=== PATIENT | male | born 1945 | race African-American/Black ===

== ENCOUNTER → 2017-01-18 | Outpatient (CLI) | payer MEDICARE, BC ==
--- NOTE | 2017-01-19 09:18 | XCELERA REPORT ---
[address] [address] Lower Extremity Arterial Evaluation Name: ROSALIA NIX Age: 71 yrs Gender: Male : 1945 Patient Status: Outpatient Patient Location: Study Date: 01/18/2017 10:30 AM Procedure: A color flow and duplex scan of the lower extremity arteries was performed bilaterally with velocity and waveform anaylsis. Reason For Study: CLAUDICATION Ordering Physician: ELOY GEE Performed By: Camilo Cueva Measurements and Calculations Right Left PAPER STRIPPER PSV 103.0 87.4 cm/sec Prox PFA PSV -77.3 -103.1 cm/sec Dist SFA PSV -86.1 -70.4 cm/sec Prox Pop A PSV 85.5 98.1 cm/sec Mid TREV PSV 38.5 cm/sec Dist TREV PSV 52.4 101.2 cm/sec Dist SINGLE RESOURCE BOSS PSV 80.5 64.3 cm/sec Cezar Pedis PSV 27.5 65.9 cm/sec Right Side Arterial Evaluation Normal velocity and triphasic waveforms noted from the Common Femoral artery to the infrageniculate vessels. 0 % stenosis noted. Ankle Brachial index is 1.25. Left Side Arterial Evaluation Normal velocity and triphasic waveforms noted from the Common Femoral artery to the Anterior Tibial artery. Occlusion with triphasic reconstitution in the Posterior Tibial artery. Occlusion noted. With excellent collateral reconstitution. Ankle Brachial index is 1.17. Interpretation Summary No hemodynamically significant lesions in the right lower extremity only, on duplex imaging, at rest. Mild hemodynamically significant lesions in the left lower extremity only, on duplex imaging, at rest. : ELOY GEE > Lauri Fagan
--- NOTE | 2017-01-19 10:44 | XCELERA REPORT ---
[address] [address] Lower Extremity Venous Evaluation Name: ROSALIA NIX Age: 71 yrs Gender: Male : 1945 Patient Status: Outpatient Patient Location: Study Date: 01/18/2017 10:53 AM Procedure: A bilateral duplex scan of the lower extremity veins was performed. The evaluation included responses to compression and other maneuvers with patient in the supine and standing positions to assess venous insufficiency. Reason For Study: EDEMA Ordering Physician: ELOY GEE Performed By: Camilo Cueva Right Sided Venous Evaluation Deep venous system evaluation shows patent veins with significant reflux identified. 3.5 second reflux in the Popliteal vein, 2.4 seconds reflux in the Femoral vein. Sapheno Femoral junction: no reflux. Greater Saphenous vein, Proximal thigh: reflux: no reflux.. Greater Saphenous vein, mid thigh: reflux: no reflux. Greater Saphenous vein, Distal thigh: reflux:no reflux. Greater Saphenous vein, Proximal below knee: reflux: none Greater Saphenous vein, Mid below knee: reflux: 3.7 sconds, 3 mm diameter.. Greater Saphenous vein, Distal below knee: reflux: 3.2 seconds, 3 mm diameter. No significant Perforators identified. Left Sided Venous Evaluation Deep venous system evaluation shows patent veins with significant reflux identified. no reflux in the Popliteal vein, 2.2 seconds reflux in the Femoral vein. Sapheno Femoral junction: no reflux. Greater Saphenous vein, Proximal thigh: reflux: no reflux.. Greater Saphenous vein, mid thigh: reflux: no reflux. Greater Saphenous vein, Distal thigh: reflux:no reflux. Greater Saphenous vein, Proximal below knee: reflux: none Greater Saphenous vein, Mid below knee: reflux: no reflux. Greater Saphenous vein, Distal below knee: reflux: no reflux. No significant Perforators identified. Interpretation Summary No duplex evidence of DVT or obstruction in the bilateral lower extremities. Deep and superficial reflux, as noted. : ELOY GEE > Lauri Fagan
== END ==
LOC: SP 10:03
PROVIDERS: ATTEND Student in an Organized Health Care Education/Training Program
DX: I73.9 Peripheral vascular disease, unspecified (principal); R60.0 Localized edema
CPT/HCPCS: 93925; 93970

== ENCOUNTER 2017-07-22 14:06 | Emergency (ER) | payer MEDICARE, BC ==
--- NOTE | 2017-07-22 14:35 | ER Document Report ---
ED Medical Screen (RME) - General Chief Complaint: Dizziness Stated Complaint: DIZZY Time Seen by Provider: 07/22/17 14:33 Notes: Patient presents with increasing dizziness right occipital pain and some confusion. Patient was recently diagnosed with sinusitis and pneumonia and has been on antibiotics for 5 days however the symptoms persist and have not gotten any better per and patient. TRAVEL OUTSIDE OF THE [place] IN LAST 30 DAYS: No - Related Data Allergies/Adverse Reactions: lisinopril Adverse Reaction (Verified 07/22/17 14:08) Unknown reaction Past Medical History - Social History Chew tobacco use (# tins/day): No Frequency of alcohol use: Rare Drug Abuse: None - Past Medical History Cardiac Medical History: Reports: Hx Hypercholesterolemia - meds x 4 years, Hx Hypertension - meds x 4 years Denies: Hx Atrial Fibrillation, Hx Congestive Heart Failure, Hx Coronary Artery Disease, Hx Heart Attack, Hx Peripheral Vascular Disease, Hx Heart Murmur Pulmonary Medical History: Neurological Medical History: Renal/ Medical History: Denies: Hx Peritoneal Dialysis GI Medical History: Denies: Hx Crohn's Disease, Hx Gastroesophageal Reflux Disease, Hx Hiatal Hernia, Hx Irritable Bowel, Hx Liver Failure, Hx Pancreatitis , Hx Ulcer Musculoskeltal Medical History: Reports Hx Arthritis, Denies Hx Fibromyalgia, Denies Hx Muscular Dystrophy Psychiatric Medical History: Denies: Hx Bipolar Disorder, Hx Depression, Hx Post Traumatic Stress Disorder , Hx Schizophrenia Traumatic Medical History: Denies: Hx Fractures Infectious Medical History: Past Surgical History: Reports: Hx Abdominal Surgery - hernia; colectomy, Hx Bowel Surgery - 07/04/13, 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 Denies: Hx Appendectomy, Hx Cholecystectomy, Hx Colostomy, Hx Coronary Artery Bypass Graft, Hx Gastric Bypass Surgery, Hx Pacemaker, Hx Tonsillectomy - Immunizations Hx Diphtheria, Pertussis, Tetanus Vaccination: Yes Physical Exam - Vital signs Vitals: Temp Pulse Resp BP Pulse Ox 97.6 F 77 20 149/78 H 96 07/22/17 14:14 07/22/17 14:14 07/22/17 14:14 07/22/17 14:14 07/22/17 14:14 Course - Vital Signs Vital signs: Temp Pulse Resp BP Pulse Ox 97.6 F 77 20 149/78 H 96 07/22/17 14:14 07/22/17 14:14 07/22/17 14:14 07/22/17 14:14 07/22/17 14:14
[2017-07-22 14:57] LABS: HEMATOCRIT 43.1 % (37.9-51.0); HEMOGLOBIN 14.2 g/dL (13.5-17.0); HGB HCT DIFFERENCE -0.5; MEAN CORPUSCULAR HEMOGLOBIN 31.7 pg (27.0-33.4); MEAN CORPUSCULAR HGB CONC 32.9 g/dL (32.0-36.0); MEAN CORPUSCULAR VOLUME 96 fl (80-97); RED BLOOD COUNT 4.48 10^6/uL (4.35-5.55); RED CELL DISTRIBUTION WIDTH 13.5 % (11.5-14.0); WHITE BLOOD COUNT 16.2 10^3/uL (4.0-10.5)
--- NOTE | 2017-07-22 15:03 | RADIOLOGY REPORT (SQ) ---
EXAM DESCRIPTION: CT HEAD WITHOUT COMPLETED DATE/TIME: 07/22/2017 2:52 pm REASON FOR STUDY: velez/dizzy COMPARISON: CT brain 01/07/2014 TECHNIQUE: Axial images acquired through the brain without intravenous contrast. Images reviewed wi th bone, brain and subdural windows. Images stored on PACS. All CT scanners at this facility use dose modulation, iterative reconstruction, and/or weight based d osing when appropriate to reduce radiation dose to as low as reasonably achievable (ALARA). [facility]: Dose Right [facility]: CareDose [facility]: Dose Right [facility]: Teradose 4D [facility]: Dial2Do RADIATION DOSE: CT Rad equipment meets quality standard of care and radiation dose reduction techniq ues were employed. CTDIvol: 64.6 mGy. DLP: 1163 mGy-cm. mGy. LIMITATIONS: None. FINDINGS: VENTRICLES: Normal size and contour. CEREBRUM: No masses. No hemorrhage. No midline shift. No evidence for acute infarction. Small advertising sales assistant amy appearing lacunar infarcts in the bilateral basal ganglia. CEREBELLUM: No masses. No hemorrhage. No alteration of density. No evidence for acute infarction. EXTRAAXIAL SPACES: No fluid collections. No masses. ORBITS AND GLOBE: No intra- or extraconal masses. Normal contour of globe without masses. CALVARIUM: No fracture. PARANASAL SINUSES: No fluid or mucosal thickening. SOFT TISSUES: No mass or hematoma. OTHER: No other significant finding. IMPRESSION: No acute findings. Punctate lacunar infarcts in the right and left caudate. EVIDENCE OF ACUTE STROKE: NO. COMMENT: Quality ID # [id number]: Final reports with documentation of one or more dose reduction techniques (e.g., Automated exposure control, adjustment of the mA and/or kV according to patient size, use of iterative reconstruction technique) TECHNICAL DOCUMENTATION: JOB ID: [id number] [employer]- All Rights Reserved
[2017-07-22 15:04] LABS: APPEARANCE,URINE CLEAR; BILIRUBIN,URINE NEGATIVE (NEGATIVE); GLUCOSE, URINE NEGATIVE (NEGATIVE); KETONES,URINE NEGATIVE (NEGATIVE); LEUKOCYTE ESTERASE,URINE NEGATIVE (NEGATIVE); NITRITE,URINE NEGATIVE (NEGATIVE); PROTEIN,URINE NEGATIVE (NEGATIVE); URINE SPECIFIC GRAVITY 1.021; UROBILINOGEN,URINE NEGATIVE mg/dL (<2.0)
--- NOTE | 2017-07-22 15:16 | ER Document Report ---
ED Dizziness/Weakness - General Chief Complaint: Dizziness Stated Complaint: DIZZY Time Seen by Provider: 07/22/17 14:33 Notes: 71 years old pleasant male who presents today with 2 weeks history of runny nose postnasal drip cough, week ago diagnosed by urgent care as having right- sided pneumonia., He has been continuously coughing and developed right-sided upper neck pain yesterday which caused him to feel dizzy and lightheaded. With some ringing sensation in the ear. Therefore presented to the ED. denies any current fever chills, denies any headache, denies any chest pain or shortness of breath. Denies any wheezing. Denies any nausea vomiting. Denies any other constitutional symptoms. TRAVEL OUTSIDE OF THE [place] IN LAST 30 DAYS: No - Related Data Allergies/Adverse Reactions: lisinopril Adverse Reaction (Verified 07/22/17 14:08) Unknown reaction Past Medical History - Social History Smoking Status: Former Smoker Chew tobacco use (# tins/day): No Frequency of alcohol use: Rare Drug Abuse: None Family History: None Patient has suicidal ideation: No Patient has homicidal ideation: No - Past Medical History Cardiac Medical History: Reports: Hx Hypercholesterolemia - meds x 4 years, Hx Hypertension - meds x 4 years Denies: Hx Atrial Fibrillation, Hx Congestive Heart Failure, Hx Coronary Artery Disease, Hx Heart Attack, Hx Peripheral Vascular Disease, Hx Heart Murmur Pulmonary Medical History: Neurological Medical History: Renal/ Medical History: Denies: Hx Peritoneal Dialysis GI Medical History: Denies: Hx Crohn's Disease, Hx Gastroesophageal Reflux Disease, Hx Hiatal Hernia, Hx Irritable Bowel, Hx Liver Failure, Hx Pancreatitis , Hx Ulcer Musculoskeltal Medical History: Reports Hx Arthritis, Denies Hx Fibromyalgia, Denies Hx Muscular Dystrophy Psychiatric Medical History: Denies: Hx Bipolar Disorder, Hx Depression, Hx Post Traumatic Stress Disorder , Hx Schizophrenia Traumatic Medical History: Denies: Hx Fractures Infectious Medical History: Past Surgical History: Reports: Hx Abdominal Surgery - hernia; colectomy, Hx Bowel Surgery - 07/04/13, 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 Denies: Hx Appendectomy, Hx Cholecystectomy, Hx Colostomy, Hx Coronary Artery Bypass Graft, Hx Gastric Bypass Surgery, Hx Pacemaker, Hx Tonsillectomy - Immunizations Hx Diphtheria, Pertussis, Tetanus Vaccination: Yes Hx Pneumococcal Vaccination: 07/07/13 Review of Systems - Review of Systems Notes: REVIEW OF SYSTEMS: CONSTITUTIONAL : Denies fever, chills, or sweats. Denies recent illness. EENT: Denies eye, ear, throat, or mouth pain or symptoms. Denies nasal or sinus congestion or discharge. Denies throat, tongue, or mouth swelling or difficulty swallowing. CARDIOVASCULAR: Denies chest pain. Denies palpitations or racing or irregular heart beat. Denies ankle edema. RESPIRATORY: As per history of complaint. Denies shortness of breath, difficulty breathing, or wheezing. GASTROINTESTINAL: Denies abdominal pain or distention. Denies nausea, vomiting , or diarrhea. Denies blood in vomitus, stools, or per rectum. Denies black, tarry stools. Denies constipation. GENITOURINARY: Denies difficulty urinating, painful urination, burning, frequency, blood in urine, or discharge. MUSCULOSKELETAL: Denies back or neck pain or stiffness. Denies joint pain or swelling. SKIN: Denies rash, lesions or sores. HEMATOLOGIC : Denies easy bruising or bleeding. LYMPHATIC: Denies swollen, enlarged glands. NEUROLOGICAL: Denies confusion or altered mental status. Denies passing out or loss of consciousness. Denies dizziness or lightheadedness. Denies headache. Denies weakness or paralysis or loss of use of either side. Denies problems with gait or speech. Denies sensory loss, numbness, or tingling. Denies seizures. PSYCHIATRIC: Denies anxiety or stress. Denies depression, suicidal ideation, or homicidal ideation. ALL OTHER SYSTEMS REVIEWED AND NEGATIVE. Dictation was performed using [employer] recognition software PHYSICAL EXAMINATION: GENERAL: Well-appearing, well-nourished and in no acute distress. HEAD: Atraumatic, normocephalic. EYES: Pupils equal round and reactive to light, extraocular movements intact, sclera anicteric, conjunctiva are normal. ENT: Nares patent, oropharynx clear without exudates. Moist mucous membranes. NECK: Normal range of motion, supple without lymphadenopathy LUNGS: Good breath sounds on the left side, right lower lung field have rhonchi HEART: Regular rate and rhythm without murmurs ABDOMEN: Soft, nontender, nondistended abdomen. No guarding, no rebound. No masses appreciated. Musculoskeletal: Normal range of motion, no pitting or edema. No cyanosis. NEUROLOGICAL: Cranial nerves grossly intact. Normal speech, normal gait. Normal sensory, motor exams PSYCH: Normal mood, normal affect. SKIN: Warm, Dry, normal turgor, no rashes or lesions noted. Physical Exam - Vital signs Vitals: Temp Pulse Resp BP Pulse Ox 97.6 F 77 20 149/78 H 96 07/22/17 14:14 07/22/17 14:14 07/22/17 14:14 07/22/17 14:14 07/22/17 14:14 Course - Re-evaluation Re-evalutation: 07/22/17 16:23 CT and chest x-ray finding was explained to the patient. He was told he must have had a stroke remotely sometimes in the past. Given prescription for his bronchitis. - Vital Signs Vital signs: Temp Pulse Resp BP Pulse Ox 97.6 F 77 20 149/78 H 96 07/22/17 14:14 07/22/17 14:14 07/22/17 14:14 07/22/17 14:14 07/22/17 14:14 - Laboratory Result Diagrams: 07/22/17 14:45 07/22/17 14:45 Laboratory results interpreted by me: 07/22/17 07/22/17 07/22/17 14:45 14:45 14:45 WBC 16.2 H Sodium 146.0 H Carbon Dioxide 31 H Urine Ascorbic Acid 40 H Discharge - Discharge Clinical Impression: Lacunar infarction, Wheezy bronchitis Benign paroxysmal positional vertigo Qualifiers: Laterality: bilateral Qualified Code(s): H81.13 - Benign paroxysmal vertigo, bilateral Headache Qualifiers: Headache type: unspecified Headache chronicity pattern: chronic headache Intractability: not intractable Qualified Code(s): R51 - Headache Condition: Fair Disposition: HOME, SELF-CARE Instructions: Dizziness ([facility]), Meclizine ([facility]), Vertigo ([facility]) Additional Instructions: bronchitis Prescriptions: Albuterol Sulfate [Proair Hfa Inhalation Aerosol 8.5 gm Mdi] 1 puff IH Q4 PRN # 1 mdi PRN Reason: Hydrocodone/Chlorphen P-Stirex [Tussionex Pennkinetic Susp] 115 ml PO BID #10 denise.er.12h Meclizine HCl 25 mg PO 5XD #30 tab.chew
[2017-07-22 15:18] LABS: ALANINE AMINOTRANSFERASE 41 U/L (21-72); ALBUMIN 4.3 g/dL (3.5-5.0); ALKALINE PHOSPHATASE 119 U/L (38-126); ANION GAP 14 (5-19); ASPARTATE AMINO TRANSFERASE 27 U/L (17-59); BILIRUBIN,DIRECT 0.3 mg/dL (0.0-0.4); BILIRUBIN,TOTAL 0.6 mg/dL (0.2-1.3); BLOOD UREA NITROGEN 16 mg/dL (7-20); CALCIUM 9.9 mg/dL (8.4-10.2); CARBON DIOXIDE 31 mmol/L (22-30); CHLORIDE 101 mmol/L (98-107); CREATININE RESULT 0.95 mg/dL (0.52-1.25); GLUCOSE 75 mg/dL (75-110); POTASSIUM 3.9 mmol/L (3.6-5.0); TOTAL PROTEIN 7.4 g/dL (6.3-8.2)
[2017-07-22] MEDS ORDERED: GUAIFENESIN/CODEINE PHOS 100-10 MG/ 5 ML UDC PO ONE (15:18)
[2017-07-22] MEDS ORDERED: DIAZEPAM 2 MG TABLET PO ONE (15:18)
--- NOTE | 2017-07-22 15:44 | RADIOLOGY REPORT (SQ) ---
EXAM DESCRIPTION: CHEST PA/LAT COMPLETED DATE/TIME: 07/22/2017 3:35 pm REASON FOR STUDY: Pneumonia COMPARISON: 04/02/2016. EXAM PARAMETERS: NUMBER OF VIEWS: two views TECHNIQUE: Digital Frontal and Lateral radiographic views of the chest acquired. RADIATION DOSE: NA LIMITATIONS: none FINDINGS: LUNGS AND PLEURA: No opacities, masses or pneumothorax. No pleural effusion. MEDIASTINUM AND HILAR STRUCTURES: No masses or contour abnormalities. HEART AND VASCULAR STRUCTURES: Heart normal size. No evidence for failure. BONES: No acute findings. Degenerative changes in the spine and right shoulder. HARDWARE: Left shoulder prosthesis. OTHER: No other significant finding. IMPRESSION: NO SIGNIFICANT RADIOGRAPHIC FINDING IN THE CHEST. TECHNICAL DOCUMENTATION: JOB ID: [id number] [employer]- All Rights Reserved
[2017-07-22 16:51] VITALS: BP 123/90
== END 2017-07-22 16:45 | disposition home or self-care (01) ==
LOC: ER 14:06
DX: J40 Bronchitis, not specified as acute or chronic (principal); H81.13 Benign paroxysmal vertigo, bilateral; R51 Headache; R09.82 Postnasal drip; R09.89 Other specified symptoms and signs involving the circulatory and respiratory systems; R05 Cough; H93.19 Tinnitus, unspecified ear; M54.2 Cervicalgia; Z87.01 Personal history of pneumonia (recurrent); I10 Essential (primary) hypertension; Z86.73 Personal history of transient ischemic attack (TIA), and cerebral infarction without residual deficits
CPT/HCPCS: 99284; 36415; 85027; 80053; 81001; 71020; 70450; A9270 ×2; J3490

== ENCOUNTER → 2017-08-11 | Outpatient (CLI) | payer MEDICARE, BC ==
--- NOTE | 2017-08-11 14:57 | RADIOLOGY REPORT (SQ) ---
EXAM DESCRIPTION: MRI HEAD COMBO COMPLETED DATE/TIME: 08/11/2017 1:44 pm REASON FOR STUDY: R42 DIZZINESS AND GIDDINESS R42 DIZZINESS AND GIDDINESS COMPARISON: CT brain 07/22/2017 TECHNIQUE: Multiplanar imaging includes noncontrasted T1, T2, FLAIR, diffusion with ADC map and post gadolinium contrast T1 sequences. Images stored on PACS. CONTRAST TYPE AND DOSE: 20 mL IV MultiHance gadolinium RENAL FUNCTION: Creatinine 0.95, estimated GFR greater than 60 LIMITATIONS: None. FINDINGS: ANATOMY: No developmental anomalies. Normal vascular flow voids. Normal basal ganglia per ivascular spaces bilaterally. Pituitary fossa normal. CSF SPACES: Normal in size and contour. No hemorrhage. CEREBRUM: Sulci and gyri normal in size and contour. Normal white matter signal on FLAIR imaging. No evidence of hemorrhage, mass, or extraaxial fluid collection. No abnormal enhancement post contrast. POSTERIOR FOSSA: No signal alteration. No hemorrhage. No edema, masses, or mass effect. Internal clarissa tory canals, cerebellopontine angles, mastoids normal. No enhancing lesions. No abnormal enhancement post contrast. DIFFUSION IMAGING: Negative for acute or subacute infarction. ORBITS: No masses. Globes normal. PARANASAL SINUSES: No fluid levels. Mucosa normal. OTHER: No other significant finding. IMPRESSION: NORMAL MRI OF THE BRAIN WITHOUT AND WITH INTRAVENOUS GADOLINIUM CONTRAST. EVIDENCE OF ACUTE STROKE: NO. TECHNICAL DOCUMENTATION: JOB ID: [id number] [employer]- All Rights Reserved
== END ==
LOC: RAD 12:15
PROVIDERS: ATTEND Student in an Organized Health Care Education/Training Program
DX: I69.911 Memory deficit following unspecified cerebrovascular disease (principal); R42 Dizziness and giddiness
CPT/HCPCS: 70553; A9577

== ENCOUNTER 2017-09-15 06:55 | Emergency (ER) | payer MEDICARE, BC ==
[2017-09-15] MEDS ORDERED: ASPIRIN 81 MG TABLET, CHEWABLE PO ONE (07:19)
[2017-09-15] MEDS ORDERED: NORMAL SALINE 500 ML IV ONE ×2 (07:28→10:15)
[2017-09-15] MEDS ORDERED: MECLIZINE HCL 25 MG TABLET PO ONE (07:29)
[2017-09-15] MEDS ORDERED: IPRATROPIUM/ALBUTEROL 0.5-2.5 MG/3 ML AMPUL NEB ONE (07:29)
[2017-09-15 07:51] LABS: ABSOLUTE BASOPHILS # (AUTO) 0.1 10^3/uL (0.0-0.2); ABSOLUTE EOSINOPHILS # (AUTO) 0.4 10^3/uL (0.0-0.6); ABSOLUTE LYMPHOCYTES (AUTO) 1.2 10^3/uL (0.5-4.7); ABSOLUTE MONOCYTES (AUTO) 0.8 10^3/uL (0.1-1.4); ABSOLUTE NEUT (AUTO) 6.5 10^3/uL (1.7-8.2); BASOPHILS % (AUTO) 0.7 % (0-2); EOSINOPHILS % (AUTO) 4.5 % (0-6); HEMATOCRIT 40.1 % (37.9-51.0); HEMOGLOBIN 13.6 g/dL (13.5-17.0); LYMPHOCYTES % (AUTO) 13.1 % (13-45); MEAN CORPUSCULAR HGB CONC 33.8 g/dL (32.0-36.0); MEAN CORPUSCULAR VOLUME 95 fl (80-97); PLATELET COUNT 228 10^3/uL (150-450); RED BLOOD COUNT 4.25 10^6/uL (4.35-5.55); RED CELL DISTRIBUTION WIDTH 13.3 % (11.5-14.0); SEGMENTED NEUTROPHILS % (AUTO) 72.7 % (42-78); TOTAL CELLS COUNTED % (AUTO) 100 %
[2017-09-15 08:10] LABS: ALANINE AMINOTRANSFERASE 35 U/L (21-72); ALBUMIN 3.9 g/dL (3.5-5.0); ALKALINE PHOSPHATASE 103 U/L (38-126); ANION GAP 9 (5-19); ASPARTATE AMINO TRANSFERASE 29 U/L (17-59); BILIRUBIN,DIRECT 0.1 mg/dL (0.0-0.4); BILIRUBIN,TOTAL 0.6 mg/dL (0.2-1.3); BLOOD UREA NITROGEN 11 mg/dL (7-20); CALCIUM 9.3 mg/dL (8.4-10.2); CARBON DIOXIDE 32 mmol/L (22-30); CHLORIDE 102 mmol/L (98-107); GLUCOSE 102 mg/dL (75-110); POTASSIUM 3.1 mmol/L (3.6-5.0); SODIUM 142.8 mmol/L (137-145); TOTAL PROTEIN 6.3 g/dL (6.3-8.2)
--- NOTE | 2017-09-15 08:24 | RADIOLOGY REPORT (SQ) ---
EXAM DESCRIPTION: CHEST PA/LAT COMPLETED DATE/TIME: 09/15/2017 8:09 am REASON FOR STUDY: dizzy cough COMPARISON: Two-view chest 07/22/2017, 04/02/2016 EXAM PARAMETERS: NUMBER OF VIEWS: two views TECHNIQUE: Digital Frontal and Lateral radiographic views of the chest acquired. RADIATION DOSE: NA LIMITATIONS: EKG leads over the chest. FINDINGS: LUNGS AND PLEURA: No opacities, masses or pneumothorax. No pleural effusion. MEDIASTINUM AND HILAR STRUCTURES: No masses or contour abnormalities. HEART AND VASCULAR STRUCTURES: Heart normal size. No evidence for failure. BONES: Osteopenic. 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 Osteoarthritis right glenohumeral joint HARDWARE: None in the chest. OTHER: No other significant finding. IMPRESSION: NO SIGNIFICANT RADIOGRAPHIC FINDING IN THE CHEST. TECHNICAL DOCUMENTATION: JOB ID: [id number] [employer]- All Rights Reserved
--- NOTE | 2017-09-15 09:15 | EKG REPORT ---
SEVERITY:- ABNORMAL ECG - SINUS RHYTHM MOBITZ TYPE1, 2ND AV BLOCK RIGHT BUNDLE BRANCH BLOCK LEFT VENTRICULAR HYPERTROPHY : Confirmed by: Delphine Bradley 15-Sep-2017 09:14:25
[2017-09-15] MEDS ORDERED: POTASSIUM CHLORIDE 20 MEQ/15 ML UDCUP PO ONE (10:15)
--- NOTE | 2017-09-15 11:55 | ER Document Report ---
ED General - General Chief Complaint: Dizziness Stated Complaint: DIZZINESS AND COUGH Time Seen by Provider: 09/15/17 07:16 TRAVEL OUTSIDE OF THE [place] IN LAST 30 DAYS: No - HPI Patient complains to provider of: Dizziness Notes: Patient coming in for evaluation of dizziness. Patient has a history of chronic dizziness been seen in the ER and had MRI performed because of his dizziness recently. Patient states over the last 2 3 days increased symptoms no nausea no vomiting fevers or chills states been hydrating with water at home. Patient states he was on meclizine however ran out. states he did recently increase his "memory pill" which is donezprl. Otherwise denies any recent trauma denies any falls. Patient resting comfortably upon my evaluation states dizziness worse when standing and ambulating. - Related Data Allergies/Adverse Reactions: lisinopril Adverse Reaction (Verified 07/22/17 14:08) Unknown reaction Past Medical History - Social History Smoking Status: Never Smoker Chew tobacco use (# tins/day): No Frequency of alcohol use: None Drug Abuse: None Family History: None Patient has suicidal ideation: No Patient has homicidal ideation: No - Past Medical History Cardiac Medical History: Reports: Hx Hypercholesterolemia - meds x 4 years, Hx Hypertension - meds x 4 years Denies: Hx Atrial Fibrillation, Hx Congestive Heart Failure, Hx Coronary Artery Disease, Hx Heart Attack, Hx Peripheral Vascular Disease, Hx Heart Murmur Pulmonary Medical History: Neurological Medical History: Renal/ Medical History: Denies: Hx Peritoneal Dialysis GI Medical History: Denies: Hx Crohn's Disease, Hx Gastroesophageal Reflux Disease, Hx Hiatal Hernia, Hx Irritable Bowel, Hx Liver Failure, Hx Pancreatitis , Hx Ulcer Musculoskeltal Medical History: Reports Hx Arthritis, Denies Hx Fibromyalgia, Denies Hx Muscular Dystrophy Psychiatric Medical History: Denies: Hx Bipolar Disorder, Hx Depression, Hx Post Traumatic Stress Disorder , Hx Schizophrenia Traumatic Medical History: Denies: Hx Fractures Infectious Medical History: Past Surgical History: Reports: Hx Abdominal Surgery - hernia; colectomy, Hx Bowel Surgery - 07/04/13, 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 Denies: Hx Appendectomy, Hx Cholecystectomy, Hx Colostomy, Hx Coronary Artery Bypass Graft, Hx Gastric Bypass Surgery, Hx Pacemaker, Hx Tonsillectomy - Immunizations Hx Diphtheria, Pertussis, Tetanus Vaccination: Yes Hx Pneumococcal Vaccination: 07/07/13 Review of Systems - Review of Systems Constitutional: No symptoms reported EENT: No symptoms reported Cardiovascular: No symptoms reported Respiratory: No symptoms reported Gastrointestinal: No symptoms reported Genitourinary: No symptoms reported Male Genitourinary: No symptoms reported Musculoskeletal: No symptoms reported Skin: No symptoms reported Hematologic/Lymphatic: No symptoms reported Neurological/Psychological: Other - Dizziness -: Yes All other systems reviewed and negative Physical Exam - Vital signs Vitals: Temp Pulse Resp BP Pulse Ox 98.7 F 96 19 138/75 H 97 09/15/17 07:06 09/15/17 07:06 09/15/17 07:06 09/15/17 07:06 09/15/17 07:06 Interpretation: Normal - General General appearance: Appears well, Alert - HEENT Head: Normocephalic, Atraumatic Eyes: Normal Pupils: PERRL - Respiratory Respiratory status: No respiratory distress Chest status: Nontender Breath sounds: Normal Chest palpation: Normal - Cardiovascular Rhythm: Regular Heart sounds: Normal auscultation Murmur: No - Abdominal Inspection: Normal Distension: No distension Bowel sounds: Normal Tenderness: Nontender Organomegaly: No organomegaly - Back Back: Normal, Nontender - Extremities General upper extremity: Normal inspection, Nontender, Normal color, Normal ROM , Normal temperature General lower extremity: Normal inspection, Nontender, Normal color, Normal ROM , Normal temperature, Normal weight bearing. No: Parminder's sign - Neurological Neuro grossly intact: Yes Cognition: Normal Orientation: AAOx4 Elbe Coma Scale Eye Opening: Spontaneous Elbe Coma Scale Verbal: Oriented Elbe Coma Scale Motor: Obeys Commands Poonam Coma Scale Total: 15 Speech: Normal Motor strength normal: LUE, RUE, LLE, RLE Sensory: Normal - Psychological Associated symptoms: Normal affect, Normal mood - Skin Skin Temperature: Warm Skin Moisture: Dry Skin Color: Normal Course - Re-evaluation Re-evalutation: 09/15/17 14:09 Potassium was was replaced by mouth. Patient symptoms improved with her IV fluids and meclizine. Patient does have orthostasis component. Explained to family that patient will need follow-up with ENT and more likely cardiology and did give the patient instructions to perform the Yuni maneuver instructed the family to follow-up with PCP for referrals cardiology and ENT. They agree with this assessment no critical findings on evaluation will be discharged home. I did review the patient's recent CAT scan and MRI due to chronic exacerbation of his chronic dizziness I do not feel that the patient needs any imaging - Vital Signs Vital signs: Temp Pulse Resp BP Pulse Ox 98.7 F 84 17 114/76 97 09/15/17 07:06 09/15/17 07:48 09/15/17 12:01 09/15/17 12:01 09/15/17 12:01 - Laboratory Result Diagrams: 09/15/17 07:42 09/15/17 07:42 Laboratory results interpreted by me: 09/15/17 09/15/17 07:42 07:42 RBC 4.25 L Potassium 3.1 L Carbon Dioxide 32 H Discharge - Discharge Clinical Impression: Dizziness Disposition: HOME, SELF-CARE Instructions: Dizziness ([facility]), Meclizine ([facility]) Additional Instructions: I highly recommend following up with your primary care physician for further evaluation of your dizziness. you may need referral to cardiology and ent for further evaluation of your dizziness. Please take the meclizine as prescribed. Return to ER symptoms worsen. Please make sure you are drinking plenty water and fluids that contain electrolytes such as Powerade and Gatorade. Prescriptions: Meclizine HCl [Antivert 25 mg Tablet] 25 mg PO TID PRN #30 tablet PRN Reason: Referrals: ELOY GEE DO [Primary Care Provider] - Follow up in 3-5 days
[2017-09-15 12:23] VITALS: BP 114/76
== END 2017-09-15 12:32 | disposition home or self-care (01) ==
LOC: ER 06:55
DX: R42 Dizziness and giddiness (principal); R05 Cough; E78.00 Pure hypercholesterolemia, unspecified; I10 Essential (primary) hypertension
CPT/HCPCS: 93005; 94640; 99284; 96360; 96361; 36415; 85025; 80053; 84484; 71046; 93010; A9270 ×3; J7040; J7620

== ENCOUNTER → 2017-12-15 | Outpatient (CLI) | payer MEDICARE, BC ==
[2017-12-15 14:10] LABS: FREE T3 5.14 pg/mL (2.77-5.27); FREE T4 (FREE THYROXINE) 0.91 ng/dL (0.78-2.19)
[2017-12-15 14:24] LABS: THYROID STIMULATING HORMONE 1.27 uIU/mL (0.47-4.68)
[2017-12-15 15:04] LABS: FOLATE 10.1 ng/mL (>2.76)
== END ==
LOC: OD 12:42
PROVIDERS: ATTEND Specialist
DX: G47.33 Obstructive sleep apnea (adult) (pediatric) (principal); R55 Syncope and collapse; G40.89 Other seizures; G31.84 Mild cognitive impairment of uncertain or unknown etiology
CPT/HCPCS: 36415; 82607; 82746; 84439; 84443; 84481; 86592

== ENCOUNTER → 2019-03-22 | Outpatient (CLI) | payer MEDICARE, BC ==
[2019-03-22 08:48] LABS: ABSOLUTE EOSINOPHILS # (AUTO) 0.1 10^3/uL (0.0-0.6); ABSOLUTE LYMPHOCYTES (AUTO) 1.8 10^3/uL (0.5-4.7); ABSOLUTE MONOCYTES (AUTO) 0.5 10^3/uL (0.1-1.4); ABSOLUTE NEUT (AUTO) 4.8 10^3/uL (1.7-8.2); BASOPHILS % (AUTO) 0.5 % (0-2); HEMATOCRIT 38.6 % (37.9-51.0); LYMPHOCYTES % (AUTO) 24.4 % (13-45); MEAN CORPUSCULAR HEMOGLOBIN 32.6 pg (27.0-33.4); MEAN CORPUSCULAR HGB CONC 33.6 g/dL (32.0-36.0); MEAN CORPUSCULAR VOLUME 97 fl (80-97); MONOCYTES % (AUTO) 6.6 % (3-13); PLATELET COUNT 242 10^3/uL (150-450); RED BLOOD COUNT 3.99 10^6/uL (4.35-5.55); RED CELL DISTRIBUTION WIDTH 13.5 % (11.5-14.0); SEGMENTED NEUTROPHILS % (AUTO) 66.5 % (42-78); TOTAL CELLS COUNTED % (AUTO) 100 %; WHITE BLOOD COUNT 7.3 10^3/uL (4.0-10.5)
[2019-03-22 09:10] LABS: ALBUMIN 4.2 g/dL (3.5-5.0); ALKALINE PHOSPHATASE 88 U/L (38-126); ANION GAP 8 (5-19); ASPARTATE AMINO TRANSFERASE 40 U/L (17-59); BILIRUBIN,DIRECT 0.2 mg/dL (0.0-0.4); BILIRUBIN,TOTAL 0.7 mg/dL (0.2-1.3); BLOOD UREA NITROGEN 16 mg/dL (7-20); CALCIUM 9.3 mg/dL (8.4-10.2); CARBON DIOXIDE 31 mmol/L (22-30); CHLORIDE 105 mmol/L (98-107); CHOLESTEROL 166.73 mg/dL (0-200); GLUCOSE 91 mg/dL (75-110); TOTAL PROTEIN 7.2 g/dL (6.3-8.2); TRIGLYCERIDES 126 mg/dL (<150)
[2019-03-22 09:21] LABS: DIRECT LDL 114 mg/dL (<100)
== END ==
LOC: OD 07:20
PROVIDERS: ATTEND Family Medicine Geriatric Medicine
DX: I10 Essential (primary) hypertension (principal); E55.9 Vitamin D deficiency, unspecified; E78.5 Hyperlipidemia, unspecified; Z79.899 Other long term (current) drug therapy
CPT/HCPCS: 36415; 80053; 80061; 82306; 83735; 84443; 85025

== ENCOUNTER 2019-09-02 08:28 | Inpatient (IN) | payer MEDICARE, BC ==
--- NOTE | 2019-09-02 08:53 | ER Document Report ---
ED General - General Chief Complaint: General Weakness Stated Complaint: GENERAL WEAKNESS Time Seen by Provider: 09/02/19 08:40 TRAVEL OUTSIDE OF THE [place] IN LAST 30 DAYS: No - HPI Notes: 73-year-old male to the emergency department with with complaints of a little over 1 week of cough and in the past 24 hours progressively worsening confusion. The patient does have a history of Alzheimer's and has some baseline confusion but states that he has had difficulty comprehending basic questions from her and also has been very generally weak. She states that last night he went into the bathroom and sat on the toilet for almost 2 hours. She kept asking him if he was okay and he kept telling her that he would be out shortly. She finally had to go in and help him off of the toilet. She states that he was little confused then but then she could redirect him and eventually they went to bed. She states that this morning she tried to get the patient to get up and move around in the home but he could not understand her when she asked him to take several steps. He stated that he felt too weak and he could not do it and needed to return to the chair that he was sitting in. He has had a nonproductive cough for the past 2 weeks. He uses a CPAP machine at night but states that he usually takes it off in the middle the night because of his dementia. He has a history of a pacemaker as well as hypertension. He is followed by Dr. Raygoza. denies any fevers. - Related Data Allergies/Adverse Reactions: lisinopril Adverse Reaction (Verified 07/22/17 14:08) Unknown reaction Past Medical History - General Information source: Relative - Spouse - Social History Smoking Status: Never Smoker Frequency of alcohol use: None Drug Abuse: None Lives with: Spouse/Significant other Family History: Hypertension - Past Medical History Cardiac Medical History: Reports: Hx Hypercholesterolemia - meds x 4 years, Hx Hypertension - meds x 4 years Denies: Hx Atrial Fibrillation, Hx Congestive Heart Failure, Hx Coronary Artery Disease, Hx Heart Attack, Hx Peripheral Vascular Disease, Hx Heart Murmur Pulmonary Medical History: Neurological Medical History: Renal/ Medical History: Denies: Hx Peritoneal Dialysis GI Medical History: Denies: Hx Crohn's Disease, Hx Gastroesophageal Reflux Disease, Hx Hiatal Hernia, Hx Irritable Bowel, Hx Liver Failure, Hx Pancreatitis, Hx Ulcer Musculoskeletal Medical History: Reports Hx Arthritis, Denies Hx Fibromyalgia, Denies Hx Muscular Dystrophy Psychiatric Medical History: Denies: Hx Bipolar Disorder, Hx Depression, Hx Post Traumatic Stress Disord er, Hx Schizophrenia Traumatic Medical History: Denies: Hx Fractures Infectious Medical History: Past Surgical History: Reports: Hx Abdominal Surgery - hernia; colectomy, Hx Bowel Surgery - 07/04/13, 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 Denies: Hx Appendectomy, Hx Cholecystectomy, Hx Colostomy, Hx Coronary Artery Bypass Graft, Hx Gastric Bypass Surgery, Hx Pacemaker, Hx Tonsillectomy - Immunizations Hx Diphtheria, Pertussis, Tetanus Vaccination: Yes Hx Pneumococcal Vaccination: 07/07/13 Review of Systems - Review of Systems Notes: Review of system is limited as patient is confused. does provide some of the review of system Constitutional: See HPI, Weakness. denies: Chills, Fever EENT: Nose discharge - Patient reports runny nose Cardiovascular: denies: Chest pain, Palpitations, Dizziness, Lightheaded Respiratory: Cough, Wheezing Gastrointestinal: denies: Abdominal pain, Diarrhea, Nausea, Vomiting Musculoskeletal: No symptoms reported Skin: No symptoms reported Neurological/Psychological: See HPI, Confusion, Dementia, Weakness -: Yes All other systems reviewed and negative Physical Exam - Vital signs Vitals: Resp Pulse Ox 23 H 94 09/02/19 08:34 09/02/19 08:34 Interpretation: Tachypneic - General General appearance: Alert, Other - Patient is confused. reports that he has dementia and is often confused but can typically answer simple questions well. Patient cannot tell me what month it is, who the clinical rn liaison is, what hospital he is at. He can tell me his full name. He has difficulty answering simple questions such as his social historyI had to ask him several times if he smoked, drink alcohol, did any drugs. He appears to have some confusion on what I am asking him with simple questions. - HEENT Head: Normocephalic, Atraumatic Eyes: Normal Pupils: PERRL Ears: Normal External canal: Normal Tympanic membrane: Normal. No: Injected, Perforation, Purulent effusion Sinus: Normal Nasal: Normal Mouth/Lips: Normal. No: Angioedema Mucous membranes: Normal Pharynx: Normal. No: Uvular edema, Potential airway comprom. Neck: Normal, Supple. No: Lymphadenopathy, Meningismus - Respiratory Respiratory status: No respiratory distress Chest status: Nontender. No: Pain on movement, Pain with cough, Pain with deep breathing, Accessory muscle use Breath sounds: Nonproductive cough, Rhonchi, Wheezing - There is chiquita diffuse expiratory wheezing throughout. Patient does not appear to be in respiratory distress. He has mild tachypnea at a rate of 25-28. No accessory muscle use. Patient can speak in full sentences Chest palpation: Normal - Cardiovascular Rhythm: Regular Heart sounds: Normal auscultation Murmur: No Notes: Mild nonpitting edema to bilateral legs. There is no tenderness to palpation over the calf or erythema to the legs - Abdominal Inspection: Obese Distension: No distension Bowel sounds: Normal Tenderness: Nontender. No: Tender, McBurney's point, Varner's sign, Guarding, Rebound Organomegaly: No organomegaly - Back Back: Normal, Nontender. No: CVA tenderness - Extremities General upper extremity: Normal inspection, Nontender, Normal color, Normal ROM, Normal temperature General lower extremity: Normal inspection, Nontender, Normal color, Normal ROM, Normal temperature, Normal weight bearing. No: Parminder's sign - Neurological Cognition: Confused Orientation: Disoriented to place, Disoriented to time, Disoriented to events Diggs Coma Scale Eye Opening: Spontaneous Diggs Coma Scale Verbal: Confused Diggs Coma Scale Motor: Obeys Commands Poonam Coma Scale Total: 14 Speech: No: Dysarthria, Expressive aphasia, Receptive aphasia Cranial nerves: Normal. No: Facial palsy, Forehead sparing, Gaze palsy, Sensory deficit Cerebellar coordination: Normal Additional motor exam normals: Equal pt skilled. No: Pronator drift - Psychological Associated symptoms: Normal affect, Confused - Skin Skin Temperature: Warm Skin Moisture: Dry Skin Color: Normal Course - Re-evaluation Re-evalutation: 09/02/19 [address]iscussed this patient with Dr. Gallegos. We agree that with his acute confusion that the patient should be admitted. We did try to road test the patient here in the emergency department but he really has not gotten better. I spoke with the hospitalist Dr. Huerta and he agrees with the plan for admission. He would like for me to obtain CT of the chest as well as a CTA of the head and neck. He is aware of the patient's labs and his wheezing on exam. He is aware of patient's baseline dementia but significantly different change in mental status today. He would like for the patient to go to a telemetry bed. I updated the patient's family about the plan and they agree. We will go ahead and cover with antibioticsRocephin and azithromycin. - Vital Signs Vital signs: Temp Pulse Resp BP Pulse Ox 97.3 F 107 H 18 145/86 H 96 09/02/19 18:32 09/02/19 18:32 09/02/19 18:32 09/02/19 18:32 09/02/19 18:32 - Laboratory Result Diagrams: 09/02/19 08:45 09/02/19 16:17 Laboratory results interpreted by me: 09/02/19 09/02/19 09/02/19 08:45 08:45 08:45 RBC 4.03 L MCH 33.5 H Lymph % (Auto) 7.7 L Seg Neutrophils % 83.3 H ABG HCO3 ABG Total CO2 Chloride 97 L Carbon Dioxide 31 H Glucose NT-Pro-B Natriuret Pep 661 H Urine Protein Urine Urobilinogen 09/02/19 09/02/19 09/02/19 10:48 11:00 16:17 RBC MCH Lymph % (Auto) Seg Neutrophils % ABG HCO3 28.7 H ABG Total CO2 30.0 H Chloride Carbon Dioxide Glucose 167 H NT-Pro-B Natriuret Pep Urine Protein 30 H Urine Urobilinogen 4.0 H - Diagnostic Test Radiology reviewed: Image reviewed, Reports reviewed - EKG Interpretation by Me Additional EKG results interpreted by me: 09/02/19 Rate 87: Rhythm: Ventricular paced, interpretation: No STEMI, left bundle branch blockthere is no significant difference from prior on 09/15/2017 Discharge - Discharge Clinical Impression: Confusion, Wheezing, Cough Altered mental status Qualifiers: Altered mental status type: unspecified Qualified Code(s): R41.82 - Altered mental status, unspecified Condition: Stable Disposition: ADMITTED INPATIENT Admitting Provider: Dr. Tulio Huerta Unit Admitted: Telemetry
[2019-09-02 09:04] LABS: ABSOLUTE EOSINOPHILS # (AUTO) 0.1 10^3/uL (0.0-0.6); ABSOLUTE LYMPHOCYTES (AUTO) 0.7 10^3/uL (0.5-4.7); ABSOLUTE MONOCYTES (AUTO) 0.7 10^3/uL (0.1-1.4); ABSOLUTE NEUT (AUTO) 7.7 10^3/uL (1.7-8.2); BASOPHILS % (AUTO) 0.3 % (0-2); EOSINOPHILS % (AUTO) 0.7 % (0-6); HEMATOCRIT 38.3 % (37.9-51.0); HEMOGLOBIN 13.5 g/dL (13.5-17.0); LYMPHOCYTES % (AUTO) 7.7 % (13-45); MEAN CORPUSCULAR HEMOGLOBIN 33.5 pg (27.0-33.4); MEAN CORPUSCULAR HGB CONC 35.2 g/dL (32.0-36.0); MEAN CORPUSCULAR VOLUME 95 fl (80-97); PLATELET COUNT 191 10^3/uL (150-450); RED BLOOD COUNT 4.03 10^6/uL (4.35-5.55); RED CELL DISTRIBUTION WIDTH 13.1 % (11.5-14.0); SEGMENTED NEUTROPHILS % (AUTO) 83.3 % (42-78); TOTAL CELLS COUNTED % (AUTO) 100 %; WHITE BLOOD COUNT 9.2 10^3/uL (4.0-10.5)
[2019-09-02] MEDS ORDERED: METHYLPREDNISOLONE INJ 125 MG/2 ML SDV IV ONE (09:14)
[2019-09-02] MEDS ORDERED: IPRATROPIUM/ALBUTEROL 0.5-2.5 MG/3 ML AMPUL NEB ONE ×2 (09:14→11:08)
--- NOTE | 2019-09-02 09:16 | RADIOLOGY REPORT (SQ) ---
EXAM DESCRIPTION: CHEST SINGLE VIEW COMPLETED DATE/TIME: 09/02/2019 9:07 am REASON FOR STUDY: cough, rhonchi, weakness COMPARISON: 03/21/2015, 04/02/2016, 09/15/2017 EXAM PARAMETERS: NUMBER OF VIEWS: One view. TECHNIQUE: Single frontal radiographic view of the chest acquired. RADIATION DOSE: NA LIMITATIONS: None. FINDINGS: LUNGS AND PLEURA: No opacities, masses or pneumothorax. No pleural effusion. MEDIASTINUM AND HILAR STRUCTURES: No masses. Contour normal. HEART AND VASCULAR STRUCTURES: Heart normal in size. Normal vasculature. BONES: Left shoulder replacement HARDWARE: Left-sided dual lead pacemaker OTHER: No other significant finding. IMPRESSION: NO ACUTE RADIOGRAPHIC FINDING IN THE CHEST. TECHNICAL DOCUMENTATION: JOB ID: [id number] [employer]- All Rights Reserved Reading location - IP/workstation name: [email or web address]
[2019-09-02 09:37] LABS: ALBUMIN 4.4 g/dL (3.5-5.0); ALKALINE PHOSPHATASE 81 U/L (38-126); ANION GAP 10 (5-19); ASPARTATE AMINO TRANSFERASE 55 U/L (17-59); BILIRUBIN,TOTAL 0.8 mg/dL (0.2-1.3); BLOOD UREA NITROGEN 11 mg/dL (7-20); CALCIUM 9.3 mg/dL (8.4-10.2); CARBON DIOXIDE 31 mmol/L (22-30); CHLORIDE 97 mmol/L (98-107); GLUCOSE 97 mg/dL (75-110); TOTAL PROTEIN 7.6 g/dL (6.3-8.2)
--- NOTE | 2019-09-02 10:01 | RADIOLOGY REPORT (SQ) ---
EXAM DESCRIPTION: CT HEAD WITHOUT COMPLETED DATE/TIME: 09/02/2019 9:43 am REASON FOR STUDY: acute confusion COMPARISON: CT brain 07/22/2017, 01/07/2014 MRI brain 08/11/2017 TECHNIQUE: Axial images acquired through the brain without intravenous contrast. Images reviewed wi th bone, brain and subdural windows. Additional sagittal and coronal reconstructions were generated. Images stored on PACS. All CT scanners at this facility use dose modulation, iterative reconstruction, and/or weight based d osing when appropriate to reduce radiation dose to as low as reasonably achievable (ALARA). [facility]: Dose Right [facility]: CareDose [facility]: Dose Right [facility]: Teradose 4D [facility]: Smart [employer] RADIATION DOSE: CT Rad equipment meets quality standard of care and radiation dose reduction techniq ues were employed. CTDIvol: 53.2 mGy. DLP: 1070 mGy-cm. mGy. LIMITATIONS: None. FINDINGS: VENTRICLES: Normal size and contour. CEREBRUM: No masses. No hemorrhage. No midline shift. No evidence for acute infarction. Old lacuna r infarcts in the right and left basal ganglia. CEREBELLUM: No masses. No hemorrhage. No alteration of density. No evidence for acute infarction. EXTRAAXIAL SPACES: No fluid collections. No masses. ORBITS AND GLOBE: No intra- or extraconal masses. Normal contour of globe without masses. CALVARIUM: No fracture. PARANASAL SINUSES: No fluid or mucosal thickening. SOFT TISSUES: No mass or hematoma. OTHER: No other significant finding. 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 No acute findings. EVIDENCE OF ACUTE STROKE: NO. COMMENT: Quality ID # 436: Final reports with documentation of one or more dose reduction techniques (e.g., Automated exposure control, adjustment of the mA and/or kV according to patient size, use of iterative reconstruction technique) TECHNICAL DOCUMENTATION: JOB ID: [id number] [employer]- All Rights Reserved Reading location - IP/workstation name: [email or web address]
--- NOTE | 2019-09-02 10:37 | EKG REPORT ---
SEVERITY:- ABNORMAL ECG - VENTRICULAR-PACED COMPLEXES LEFT BUNDLE BRANCH BLOCK : Confirmed by: Michael Hyatt MD 02-Sep-2019 10:37:19
[2019-09-02] MEDS ORDERED: NORMAL SALINE 500 ML IV ONE (11:08)
[2019-09-02 11:22] LABS: APPEARANCE,URINE CLEAR; BILIRUBIN,URINE NEGATIVE (NEGATIVE); COLOR,URINE YELLOW; GLUCOSE, URINE NEGATIVE (NEGATIVE); KETONES,URINE NEGATIVE (NEGATIVE); PROTEIN,URINE 30 mg/dL (NEGATIVE)
[2019-09-02 11:29] LABS: ARTERIAL BLOOD BASE EXCESS 4.2 mmol/L; ARTERIAL BLOOD H2CO3 1.26 mmol/L (1.05-1.35); ARTERIAL BLOOD HCO3 28.7 mmol/L (20-24); ARTERIAL BLOOD O2 SATURATION 96.4 % (94-98); ARTERIAL BLOOD PH 7.45 (7.35-7.45); ARTERIAL BLOOD PO2 80.7 mmHg (80-100)
[2019-09-02 11:33] LABS: ARTERIAL BLOOD FIO2 3L NC
[2019-09-02] MEDS ORDERED: CEFTRIAXONE 1 GM/D5W RTU 1 GM/50 ML RTUPB IV ONE (13:22)
[2019-09-02] MEDS ORDERED: AZITHROMYCIN INJ 500 MG VIAL IV ONE (13:22)
--- NOTE | 2019-09-02 15:34 | RADIOLOGY REPORT (SQ) ---
EXAM DESCRIPTION: CTA HEAD; CTA NECK COMPLETED DATE/TIME: 09/02/2019 3:12 pm REASON FOR STUDY: acute confusion COMPARISON: None. TECHNIQUE: Post IV contrast scanning, thin section axial imaging through the brain to evaluate the a rterial structures. Source and MIP images are saved and reviewed on PACS. Advanced 3D imaging as volume-rendering, MIPs, SSD performed? yes Post IV contrast scanning, thin section axial imaging through the extracranial carotid and vertebral circulation to evaluate the arterial structures. Source and MIP images are saved and reviewed on PAC S. Advanced 3D imaging as volume-rendering, MIPs, SSD performed? yes All CT scanners at this facility use dose modulation, iterative reconstruction, and/or weight based d osing when appropriate to reduce radiation dose to as low as reasonably achievable (ALARA). [facility]: Dose Right [facility]: CareDose [facility]: Dose Right [facility]: Teradose 4D [facility]: [employer] CONTRAST TYPE AND DOSE: contrast/concentration: Isovue 350.00 mg/ml; Total Contrast Delivered: 70.0 ml; Total Saline Delivered: 75.0 ml RENAL FUNCTION: Creatinine 0.9 LIMITATIONS: None. FINDINGS: CT ANGIO BRAIN [place]: The anterior, middle, posterior cerebral arteries are all patent. No evidence of a neurysm or focal stenosis. POSTERIOR CIRCULATION: The distal vertebral arteries are patent as is the basilar artery. No aneurysm . BRAIN: No gross enhancing lesions as visualized. The superior cerebral hemispheres are not included in the field of view. BONES: Intact as visualized. SINUSES: No fluid or mucosal thickening. CT ANGIO NECK AORTA AND GREAT VESSELS: Ascending thoracic aorta 4 cm in diameter. Origins of the great vessels ar e widely patent. RIGHT CAROTID SYSTEM: Right common carotid artery, carotid bifurcation and cervical internal carotid artery are widely patent. LEFT CAROTID SYSTEM: Left common carotid artery, carotid bifurcation and cervical internal carotid a rtery are widely patent. EXTRACRANIAL VERTEBRAL ARTERIES: Codominant vertebral arteries, widely patent. NECK SOFT TISSUES: Diffuse thyromegaly. No cervical adenopathy. Multilevel degenerative disc layton es in the cervical spine. Larynx and upper arrow digestive tract unremarkable. Paranasal sinuses, m astoid air cells clear. Major salivary glands unremarkable IMPRESSION: NO CTA EVIDENCE OF STENOSIS OR ANEURYSM OF THE [place]. NO CTA EVIDENCE OF SIGNIFICANT CAROTID BIFURCATION STENOSIS, CAROTID OR VERTEBRAL ARTERY DISSECTION. TECHNICAL DOCUMENTATION: JOB ID: [id number] Quality ID # [id number]: Final reports with documentation of one or more dose reduction techniques (e.g., Au tomated exposure control, adjustment of the mA and/or kV according to patient size, use of iterative reconstruction technique) 2010 [employer]- All Rights Reserved Reading location - IP/workstation name: [email or web address]
--- NOTE | 2019-09-02 15:34 | RADIOLOGY REPORT (SQ) ---
EXAM DESCRIPTION: CTA HEAD; CTA NECK COMPLETED DATE/TIME: 09/02/2019 3:12 pm REASON FOR STUDY: acute confusion COMPARISON: None. TECHNIQUE: Post IV contrast scanning, thin section axial imaging through the brain to evaluate the a rterial structures. Source and MIP images are saved and reviewed on PACS. Advanced 3D imaging as volume-rendering, MIPs, SSD performed? yes Post IV contrast scanning, thin section axial imaging through the extracranial carotid and vertebral circulation to evaluate the arterial structures. Source and MIP images are saved and reviewed on PAC S. Advanced 3D imaging as volume-rendering, MIPs, SSD performed? yes All CT scanners at this facility use dose modulation, iterative reconstruction, and/or weight based d osing when appropriate to reduce radiation dose to as low as reasonably achievable (ALARA). [facility]: Dose Right [facility]: CareDose [facility]: Dose Right [facility]: Teradose 4D [facility]: [employer] CONTRAST TYPE AND DOSE: contrast/concentration: Isovue 350.00 mg/ml; Total Contrast Delivered: 70.0 ml; Total Saline Delivered: 75.0 ml RENAL FUNCTION: Creatinine 0.9 LIMITATIONS: None. FINDINGS: CT ANGIO BRAIN [place]: The anterior, middle, posterior cerebral arteries are all patent. No evidence of a neurysm or focal stenosis. POSTERIOR CIRCULATION: The distal vertebral arteries are patent as is the basilar artery. No aneurysm . BRAIN: No gross enhancing lesions as visualized. The superior cerebral hemispheres are not included in the field of view. BONES: Intact as visualized. SINUSES: No fluid or mucosal thickening. CT ANGIO NECK AORTA AND GREAT VESSELS: Ascending thoracic aorta 4 cm in diameter. Origins of the great vessels ar e widely patent. RIGHT CAROTID SYSTEM: Right common carotid artery, carotid bifurcation and cervical internal carotid artery are widely patent. LEFT CAROTID SYSTEM: Left common carotid artery, carotid bifurcation and cervical internal carotid a rtery are widely patent. EXTRACRANIAL VERTEBRAL ARTERIES: Codominant vertebral arteries, widely patent. NECK SOFT TISSUES: Diffuse thyromegaly. No cervical adenopathy. Multilevel degenerative disc layton es in the cervical spine. Larynx and upper arrow digestive tract unremarkable. Paranasal sinuses, m astoid air cells clear. Major salivary glands unremarkable IMPRESSION: NO CTA EVIDENCE OF STENOSIS OR ANEURYSM OF THE [place]. NO CTA EVIDENCE OF SIGNIFICANT CAROTID BIFURCATION STENOSIS, CAROTID OR VERTEBRAL ARTERY DISSECTION. TECHNICAL DOCUMENTATION: JOB ID: [id number] Quality ID # [id number]: Final reports with documentation of one or more dose reduction techniques (e.g., Au tomated exposure control, adjustment of the mA and/or kV according to patient size, use of iterative reconstruction technique) 2010 [employer]- All Rights Reserved Reading location - IP/workstation name: [email or web address]
[2019-09-02] MEDS ORDERED: PROMETHAZINE HCL 25 MG TABLET PO PRN (15:41)
[2019-09-02] MEDS ORDERED: ONDANSETRON 4 MG TAB.RAPDIS PO PRN (15:41)
[2019-09-02] MEDS ORDERED: ONDANSETRON HCL INJ/PF 4 MG/2 ML SDV IV PRN (15:41)
--- NOTE | 2019-09-02 15:51 | RADIOLOGY REPORT (SQ) ---
EXAM DESCRIPTION: CT CHEST WITH COMPLETED DATE/TIME: 09/02/2019 3:12 pm REASON FOR STUDY: bronchitis COMPARISON: Chest films 09/02/2019, 09/15/2017, 07/22/2017 TECHNIQUE: CT scan of the chest performed using helical scanning technique with dynamic intravenous contrast injection. Images reviewed with lung, soft tissue and bone windows. Reconstructed coronal and sagittal MPR and MIP images reviewed. All images stored on PACS. All CT scanners at this facility use dose modulation, iterative reconstruction, and/or weight based d osing when appropriate to reduce radiation dose to as low as reasonably achievable (ALARA). [facility]: Dose Right [facility]: CareDose [facility]: Dose Right [facility]: Teradose 4D [facility]: Relead CONTRAST TYPE AND DOSE: 70 mL of IV Omnipaque 350- low osmolar. RENAL FUNCTION: Creatinine 0.9 RADIATION DOSE: 17 mGy . LIMITATIONS: None. FINDINGS: LUNGS AND PLEURA: No opacities, nodules, masses. No pneumothorax. No effusions. HILAR AND MEDIASTINAL STRUCTURES: No identified masses or abnormal nodes. HEART AND VASCULAR STRUCTURES: No aneurysm or dissection. No central pulmonary emboli. No pericardi al effusion. Great vessels are patent. HARDWARE: Left-sided pacemaker UPPER ABDOMEN: No significant findings. Limited exam. THYROID AND OTHER SOFT TISSUES: Diffuse thyromegaly. BONES: Left shoulder replacement. OTHER: No other significant finding. IMPRESSION: No acute findings TECHNICAL DOCUMENTATION: JOB ID: [id number] Quality ID # [id number]: Final reports with documentation of one or more dose reduction techniques (e.g., Au tomated exposure control, adjustment of the mA and/or kV according to patient size, use of iterative reconstruction technique) 2010 [employer]- All Rights Reserved Reading location - IP/workstation name: [email or web address]
--- NOTE | 2019-09-02 16:13 | PDOC H&P ---
History of Present Illness Admission Date/PCP: 09/02/19 14:47 CHUCKY GARY MD History of Present Illness: ROSALIA NIX is a 73 year old male with past medical history significant for p rior stroke, HTN, HLD, pacemaker implanted, Alzheimer's dementia who presents to ED for 1 day history of word finding difficulty/dizziness/lightheadedness and a 1 week history of dry cough and reported congestion without sputum production. History obtained from patient's family at bedside as patient has severe dementia. Family denies patient having fever/chills/nausea/vomiting/diarrhea/abdominal pain/one-sided weakness or numbness. They state that what concerned him enough to bring patient to the hospital is that he was no longer able to walk or lift his legs and had been refusing food and drink for the past 24 hours. Of note, patient has CT evidence here of a prior lacunar stroke but nothing acute on this head CT here. Chest x- ray did not show any acute process. Labs did not show any specific abnormality other than mildly elevated BNP. Negative troponin. Admitted for further work- up and evaluation. Past Medical History Cardiac Medical History: Reports: Hyperlipidema - meds x 4 years, Hypertension - meds x 4 years Denies: Atrial Fibrillation, Congestive Heart Failure, Coronary Artery Disease, Myocardial Infarction, Peripheral Vascular Disease, Heart Murmur Pulmonary Medical History: Reports: Sleep Apnea - Noncompliant with CPAP EENT Medical History: Reports: None Neurological Medical History: Reports: Ischemic CVA Renal/ Medical History: Reports: None Malignancy Medical History: Reports: None GI Medical History: Denies: Crohn's Disease, Gastroesophageal Reflux Disease, Hiatal Hernia Musculoskeltal Medical History: Reports: Arthritis Denies: Fibromyalgia Psychiatric Medical History: Denies: Bipolar Disorder, Depression, Post Traumatic Stress Disorder Hematology: Reports: None Infectious Medical History: Reports: None Past Surgical History Past Surgical History: Reports: Herniorrhaphy - ventral (with lap hemicolectomy), Orthopedic Surgery - right knee Denies: Appendectomy, Cholecystectomy, Colostomy, Coronary Artery Bypass Graft, Gastric Bypass Surgery, Pacemaker, Tonsillectomy Social History Information Source: Relative, POA - Power of Home Inspector Lives with: Spouse/Significant other Smoking Status: Former Smoker Frequency of Alcohol Use: None Hx Recreational Drug Use: No Drugs: None Hx Prescription Drug Abuse: No - Advance Directive Resuscitation Status: Do Not Resuscitate Surrogate healthcare decision maker:: Daughter Family History Family History: None, Reviewed & Not Pertinent, Hypertension Parental Family History Reviewed: Yes Children Family History Reviewed: Yes Sibling(s) Family History Reviewed.: Yes Medication/Allergy Home Medications: Alprazolam [Xanax 0.5 mg Tablet] 0.5 mg PO Q12 09/02/19 Aspirin [Adult Low Dose Aspirin EC] 81 mg PO QHS 09/02/19 Buspirone HCl [Buspar 30 mg Tablet] 1 tab PO BID 09/02/19 Ergocalciferol (Vitamin D2) [Vitamin D2] 50,000 unit PO WE@1000 09/02/19 Losartan/Hydrochlorothiazide [Losartan-Hctz 100-25 mg Tab] 1 each PO DAILY 09/02/19 Magnesium Oxide [Magox] 400 mg PO DAILY 09/02/19 Memantine HCl [Namenda] 5 mg PO Q12 09/02/19 Metoprolol Tartrate [Lopressor 25 mg Tablet] 25 mg PO Q12 09/02/19 Potassium Chloride [K-Tab] 10 meq PO DAILY 09/02/19 Ranolazine [Ranexa 500 mg Tab.sr] 500 mg PO Q12 09/02/19 Simvastatin [Zocor 40 mg Tablet] 40 mg PO DAILY 09/02/19 Allergies/Adverse Reactions: lisinopril Adverse Reaction (Verified 07/22/17 14:08) Unknown reaction Review of Systems All systems: reviewed and no additional remarkable complaints except as stated - Dizziness/lightheadedness/babbling speech/dry cough/congestion/confusion. No other specific complaints other than what is stated in HPI. Physical Exam Vital Signs: Temp Pulse Resp BP Pulse Ox 97.9 F 18 146/87 H 93 09/02/19 08:40 09/02/19 15:01 09/02/19 14:02 09/02/19 14:02 Intake & Output 09/01/19 09/02/19 09/03/19 06:59 06:59 06:59 Intake Total 500 Balance 500 Weight 117.934 kg General appearance: PRESENT: no acute distress, obese, well-developed, well- nourished Head exam: PRESENT: atraumatic, normocephalic Eye exam: PRESENT: conjunctiva pink. ABSENT: scleral icterus Mouth exam: PRESENT: moist Respiratory exam: PRESENT: clear to auscultation johnathan. ABSENT: rales, rhonchi, wheezes Cardiovascular exam: PRESENT: RRR. ABSENT: diastolic murmur, rubs, systolic murmur GI/Abdominal exam: PRESENT: normal bowel sounds, soft. ABSENT: distended, guarding, mass, organolmegaly, rebound, tenderness Rectal exam: PRESENT: deferred Extremities exam: PRESENT: pedal edema Neurological exam: PRESENT: alert, awake, oriented to person, CN II-XII grossly intact. ABSENT: oriented to place, oriented to time, oriented to situation, motor sensory deficit Psychiatric exam: PRESENT: appropriate affect, normal mood Skin exam: PRESENT: dry, intact, warm Results Laboratory Results: 09/02/19 08:45 09/02/19 08:45 09/02/19 09/02/19 09/02/19 08:45 08:45 08:45 WBC 9.2 RBC 4.03 L Hgb 13.5 Hct 38.3 MCV 95 MCH 33.5 H MCHC 35.2 RDW 13.1 Plt Count 191 Seg Neutrophils % 83.3 H Carbonic Acid HCO3/H2CO3 Ratio ABG pH ABG pCO2 ABG pO2 ABG HCO3 ABG O2 Saturation ABG Base Excess FiO2 Sodium 137.7 Potassium 4.0 Chloride 97 L Carbon Dioxide 31 H Anion Gap 10 BUN 11 Creatinine 0.94 Est GFR ( Amer) > 60 Glucose 97 Lactic Acid 1.3 Calcium 9.3 Magnesium 2.0 Total Bilirubin 0.8 AST 55 Alkaline Phosphatase 81 Total Protein 7.6 Albumin 4.4 Urine Color Urine Appearance Urine pH Ur Specific [place] Urine Protein Urine Glucose (UA) Urine Ketones Urine Blood Urine RBC (Auto) 09/02/19 09/02/19 10:48 11:00 WBC RBC Hgb Hct MCV MCH MCHC RDW Plt Count Seg Neutrophils % Carbonic Acid 1.26 HCO3/H2CO3 Ratio 22:1 ABG pH 7.45 ABG pCO2 42.0 ABG pO2 80.7 ABG HCO3 28.7 H ABG O2 Saturation 96.4 ABG Base Excess 4.2 FiO2 3L NC Sodium Potassium Chloride Carbon Dioxide Anion Gap BUN Creatinine Est GFR ( Amer) Glucose Lactic Acid Calcium Magnesium Total Bilirubin AST Alkaline Phosphatase Total Protein Albumin Urine Color YELLOW Urine Appearance CLEAR Urine pH 6.0 Ur Specific [place] 1.020 Urine Protein 30 H Urine Glucose (UA) NEGATIVE Urine Ketones NEGATIVE Urine Blood NEGATIVE Urine RBC (Auto) 4 09/02/19 09/02/19 08:45 08:45 Troponin I < 0.012 NT-Pro-B Natriuret Pep 661 H Impressions: Chest X-Ray 09/02/19 08:51 IMPRESSION: NO ACUTE RADIOGRAPHIC FINDING IN THE CHEST. Head CT 09/02/19 09:16 IMPRESSION: Old lacunar infarcts in the right and left basal ganglia. No acute findings. EVIDENCE OF ACUTE STROKE: NO. Head CTA 09/02/19 13:20 IMPRESSION: NO CTA EVIDENCE OF STENOSIS OR ANEURYSM OF THE [place]. NO CTA EVIDENCE OF SIGNIFICANT CAROTID BIFURCATION STENOSIS, CAROTID OR VERTEBRAL ARTERY DISSECTION. Neck CTA 09/02/19 13:20 IMPRESSION: NO CTA EVIDENCE OF STENOSIS OR ANEURYSM OF THE [place]. NO CTA EVIDENCE OF SIGNIFICANT CAROTID BIFURCATION STENOSIS, CAROTID OR VERTEBRAL ARTERY DISSECTION. Assessment and Plan - Diagnosis (1) Metabolic encephalopathy Is this a current diagnosis for this admission?: Yes Plan: Unclear etiology: Suspect possible CVA versus atypical pneumonia versus bronchitis versus hypoxemia due to noncompliance with CPAP versus aspiration event Superimposed on severe underlying Alzheimer's dementia and likely vascular dementia Chest x-ray showed no acute findings CT head showed old lacunar strokes but no acute findings Unable to do MRI brain due to pacemaker CTA head/neck showed no acute findings Plan to repeat dry CT head in 48 hours to reassess for stroke Ammonia Every 4 hours neurochecks (2) Stroke-like symptoms Is this a current diagnosis for this admission?: Yes Plan: Aspirin, statin If stroke confirmed, will need to switch to Plavix or Aggrenox Would benefit from follow-up outpatient with neurologist (3) Dry cough Is this a current diagnosis for this admission?: Yes Plan: Chest x-ray clear CT chest pending to rule out atypical pneumonia Empiric ceftriaxone/azithromycin; plan to stop this if no evidence of infection Possibly cough due to CHF; echocardiogram Nebs, bronchial hygiene (4) AUGIE (obstructive sleep apnea) Is this a current diagnosis for this admission?: Yes Plan: Consistently noncompliant with CPAP per family; repeatedly pulls off his mask throughout the night due to dementia Doubt he is a candidate for any other AUGIE treatment modalities (5) Dizziness Is this a current diagnosis for this admission?: Yes (6) Pacemaker Is this a current diagnosis for this admission?: Yes Plan: Per daughter, follows with cardiology every 3 months and has a continuous pacemaker monitor at home; they state patient's pacemaker was interrogated less than 3 months ago in the prop sawyer office and the battery is less than 2 years old; they state it is working properly per their physicians (7) HLD (hyperlipidemia) Is this a current diagnosis for this admission?: Yes Plan: Statin (8) HTN (hypertension) Is this a current diagnosis for this admission?: Yes Plan: Home medications continued selectively Permissive hypertension x48 hours or until stroke is ruled out, which ever comes first Blood pressure goal for permissive hypertension is 220/110; if stroke is ruled out our goal is less than 120/90 (9) History of stroke Is this a current diagnosis for this admission?: Yes (10) Alzheimer's dementia Is this a current diagnosis for this admission?: Yes Plan: Severe and progressive PT/OT/ST evaluation - Time Time Spent with patient: 35 or more minutes Medications reviewed and adjusted accordingly: Yes Within: within 48 hours - Inpatient Certification Medical Necessity: Significant Comorbidiites Make Outpatient Treatment Too Risky, Need Close Monitoring Due to Risk of Patient Decompensation, Need for Neurological Checks
--- NOTE | 2019-09-02 16:17 | ADVANCED CARE ---
- Diagnosis (1) Metabolic encephalopathy Diagnosis Current: Yes (2) Stroke-like symptoms Diagnosis Current: Yes (3) Dry cough Diagnosis Current: Yes (4) AUGIE (obstructive sleep apnea) Diagnosis Current: Yes (5) Dizziness Diagnosis Current: Yes (6) Pacemaker Diagnosis Current: Yes (7) HLD (hyperlipidemia) Diagnosis Current: Yes (8) HTN (hypertension) Diagnosis Current: Yes (9) History of stroke Diagnosis Current: Yes (10) Alzheimer's dementia Diagnosis Current: Yes Attendance: Venkatesh MACDONALD daughter, patient, other family members Resuscitation Status: Do Not Resuscitate Discussion: Extensive discussion of all aspects of code including CPR/intubation/cardioversion and family all agree including Venkatesh MACDONALD that patient wishes to be DNR/DNI and he has expressed this to them on multiple occasions in the past. Patient's Venkatesh MACDONALD is his daughter Marlene Merrill [phone] Time Spent: 17
[2019-09-02 16:56] LABS: ANION GAP 12 (5-19); BLOOD UREA NITROGEN 10 mg/dL (7-20); CALCIUM 9.1 mg/dL (8.4-10.2); CARBON DIOXIDE 26 mmol/L (22-30); CHLORIDE 101 mmol/L (98-107); GLUCOSE 167 mg/dL (75-110); POTASSIUM 3.7 mmol/L (3.6-5.0)
[2019-09-02] MEDS: ENOXAPARIN SODIUM INJ 40 MG/0.4 ML DISP.SYRIN SUBCUT SCH (18:58)
[2019-09-02] MEDS: MEMANTINE HCL 10 MG TABLET PO SCH (22:17)
[2019-09-02] MEDS: ALPRAZOLAM 0.5 MG TABLET PO PRN (22:17)
[2019-09-02] MEDS: METOPROLOL TARTRATE 25 MG TABLET PO SCH (22:18)
[2019-09-02] MEDS: ASPIRIN 81 MG TABLET, ENT COATED PO SCH (22:18)
[2019-09-02] MEDS: PROMETHAZINE HCL INJ 25 MG/1 ML VIAL IV PRN (22:25)
[2019-09-03 05:23] LABS: ABSOLUTE MONOCYTES (AUTO) 0.8 10^3/uL (0.1-1.4); ABSOLUTE NEUT (AUTO) 6.3 10^3/uL (1.7-8.2); BASOPHILS % (AUTO) 0.2 % (0-2); HEMATOCRIT 38.5 % (37.9-51.0); HEMOGLOBIN 13.2 g/dL (13.5-17.0); LYMPHOCYTES % (AUTO) 12.2 % (13-45); MEAN CORPUSCULAR HEMOGLOBIN 33.3 pg (27.0-33.4); MEAN CORPUSCULAR HGB CONC 34.4 g/dL (32.0-36.0); MEAN CORPUSCULAR VOLUME 97 fl (80-97); MONOCYTES % (AUTO) 10.4 % (3-13); PLATELET COUNT 181 10^3/uL (150-450); RED BLOOD COUNT 3.97 10^6/uL (4.35-5.55); RED CELL DISTRIBUTION WIDTH 13.3 % (11.5-14.0); SEGMENTED NEUTROPHILS % (AUTO) 77.2 % (42-78); TOTAL CELLS COUNTED % (AUTO) 100 %; WHITE BLOOD COUNT 8.1 10^3/uL (4.0-10.5)
[2019-09-03] MEDS ORDERED: ENOXAPARIN SODIUM INJ 40 MG/0.4 ML DISP.SYRIN SUBCUT SCH (10:00)
[2019-09-03] MEDS ORDERED: AZITHROMYCIN INJ 500 MG VIAL IV SCH (10:00)
[2019-09-03] MEDS ORDERED: CEFTRIAXONE 2 GM/D5W RTU 2 GM/50 ML RTUPB IV SCH (10:00)
[2019-09-03] MEDS: DOCUSATE SODIUM 100 MG/10 ML UDC PO SCH (11:10)
[2019-09-03] MEDS: BUSPIRONE HCL 10 MG TABLET PO SCH ×2 (11:10→17:26)
[2019-09-03] MEDS: POTASSIUM CHLORIDE 10 MEQ TABLET.ER PO SCH (11:11)
[2019-09-03] MEDS: METOPROLOL TARTRATE 25 MG TABLET PO SCH ×2 (11:11→22:07)
[2019-09-03] MEDS: MEMANTINE HCL 10 MG TABLET PO SCH ×2 (11:11→22:06)
[2019-09-03] MEDS: MAGNESIUM OXIDE 400 MG TABLET PO SCH (11:12)
[2019-09-03] MEDS: ENOXAPARIN SODIUM INJ 40 MG/0.4 ML DISP.SYRIN SUBCUT SCH (11:13)
[2019-09-03] MEDS: SIMVASTATIN 40 MG TABLET PO SCH (11:13)
[2019-09-03] MEDS: ALPRAZOLAM 0.5 MG TABLET PO PRN (11:24)
[2019-09-03] MEDS ORDERED: AZITHROMYCIN 500 MG in DEXTROSE 5%-WATER 250 ML IV SCH (12:00)
--- NOTE | 2019-09-03 12:42 | PDOC PROGRESS REPORT ---
Subjective Progress Note for:: 09/03/19 Subjective:: Patient is a 73-year-old white male who presented with acute metabolic encephalopathy, ataxia, refusing food and drink, cough/congestion. Patient was admitted for possible stroke, dry head CT did not show any acute findings, only old lacunar strokes. CTA head/neck done which did not show any acute findings either. Unable to get MRI due to pacemaker. Patient started on empiric antibiotics for possible community-acquired pneumonia. CT chest showed no acute findings antibiotics were stopped. Mentation improved. Patient continues to refuse his CPAP nightly. Reason For Visit: METABOLIC ENCEPHALOPATHY,RULE OUT CVA,RULE OUT Physical Exam Vital Signs: Temp Pulse Resp BP Pulse Ox 98.6 F 79 18 132/65 H 93 09/03/19 08:42 09/03/19 08:42 09/03/19 08:42 09/03/19 08:42 09/03/19 08:42 Intake & Output 09/02/19 09/03/19 09/04/19 06:59 06:59 06:59 Intake Total 500 50 Output Total 0 Balance 500 50 Weight 123.1 kg General appearance: PRESENT: no acute distress, well-developed, well-nourished Head exam: PRESENT: atraumatic, normocephalic Eye exam: PRESENT: conjunctiva pink Mouth exam: PRESENT: moist Respiratory exam: PRESENT: crackles - Very scant at bilateral bases, clearer today. ABSENT: rales, rhonchi, wheezes Cardiovascular exam: PRESENT: RRR. ABSENT: diastolic murmur, rubs, systolic murmur GI/Abdominal exam: PRESENT: normal bowel sounds, soft. ABSENT: distended, guarding, mass, organolmegaly, rebound, tenderness Neurological exam: PRESENT: alert, awake, oriented to person Psychiatric exam: PRESENT: appropriate affect, normal mood Skin exam: PRESENT: dry, intact, warm Results Laboratory Results: 09/03/19 05:02 09/02/19 16:17 09/02/19 09/03/19 09/03/19 16:17 05:02 05:02 WBC 8.1 RBC 3.97 L Hgb 13.2 L Hct 38.5 MCV 97 MCH 33.3 MCHC 34.4 RDW 13.3 Plt Count 181 Seg Neutrophils % 77.2 Sodium 139.2 Potassium 3.7 Chloride 101 Carbon Dioxide 26 Anion Gap 12 BUN 10 Creatinine 0.90 Est GFR ( Amer) > 60 Glucose 167 H Calcium 9.1 Magnesium 2.2 Ammonia TSH 09/03/19 09/03/19 05:02 05:02 WBC RBC Hgb Hct MCV MCH MCHC RDW Plt Count Seg Neutrophils % Sodium Potassium Chloride Carbon Dioxide Anion Gap BUN Creatinine Est GFR ( Amer) Glucose Calcium Magnesium Ammonia 26.0 TSH 1.27 09/02/19 09/02/19 08:45 08:45 Troponin I < 0.012 NT-Pro-B Natriuret Pep 661 H Impressions: Chest X-Ray 09/02/19 08:51 IMPRESSION: NO ACUTE RADIOGRAPHIC FINDING IN THE CHEST. Head CT 09/02/19 09:16 IMPRESSION: Old lacunar infarcts in the right and left basal ganglia. No acute findings. EVIDENCE OF ACUTE STROKE: NO. Chest CT 09/02/19 13:20 IMPRESSION: No acute findings Head CTA 09/02/19 13:20 IMPRESSION: NO CTA EVIDENCE OF STENOSIS OR ANEURYSM OF THE [place]. NO CTA EVIDENCE OF SIGNIFICANT CAROTID BIFURCATION STENOSIS, CAROTID OR VERTEBRAL ARTERY DISSECTION. Neck CTA 09/02/19 13:20 IMPRESSION: NO CTA EVIDENCE OF STENOSIS OR ANEURYSM OF THE [place]. NO CTA EVIDENCE OF SIGNIFICANT CAROTID BIFURCATION STENOSIS, CAROTID OR VERTEBRAL ARTERY DISSECTION. Assessment and Plan - Diagnosis (1) Metabolic encephalopathy Is this a current diagnosis for this admission?: Yes Plan: Unclear etiology: Suspect possible CVA versus atypical pneumonia versus bronchitis versus hypoxemia due to noncompliance with CPAP versus aspiration event Superimposed on severe underlying Alzheimer's dementia and likely vascular dementia Chest x-ray showed no acute findings, CT chest showed no acute findings CT head showed old lacunar strokes but no acute findings Unable to do MRI brain due to pacemaker CTA head/neck showed no acute findings Plan to repeat dry CT head in 48 hours to reassess for stroke Ammonia normal Every 4 hours neurochecks (2) Stroke-like symptoms Is this a current diagnosis for this admission?: Yes Plan: Aspirin, statin If stroke confirmed, will need to switch to Plavix or Aggrenox Would benefit from follow-up outpatient with neurologist Strength 5/5 upper and lower extremities equal bilaterally, no obvious cranial nerve deficits (3) Dry cough Is this a current diagnosis for this admission?: Yes (4) AUGIE (obstructive sleep apnea) Is this a current diagnosis for this admission?: Yes (5) Dizziness Is this a current diagnosis for this admission?: Yes (6) Pacemaker Is this a current diagnosis for this admission?: Yes (7) HLD (hyperlipidemia) Is this a current diagnosis for this admission?: Yes (8) HTN (hypertension) Is this a current diagnosis for this admission?: Yes (9) History of stroke Is this a current diagnosis for this admission?: Yes (10) Alzheimer's dementia Is this a current diagnosis for this admission?: Yes - Time Time Spent with patient: 25-34 minutes Medications reviewed and adjusted accordingly: Yes Anticipated discharge: Home - Inpatient Certification Based on my medical assessment, after consideration of the patient's comorbidities, presenting symptoms, or acuity I expect that the services needed warrant INPATIENT care.: Yes I certify that my determination is in accordance with my understanding of Medicare's requirements for reasonable and necessary INPATIENT services [42 CFR 412.3e].: Yes Medical Necessity: Significant Comorbidiites Make Outpatient Treatment Too Risky, Need Close Monitoring Due to Risk of Patient Decompensation, Need for Neurological Checks
[2019-09-03] MEDS: ALBUTEROL SULFATE 0.083% NEB 2.5 MG/3 ML AMPUL NEB PRN ×2 (14:18→20:02)
[2019-09-03] MEDS: ACETAMINOPHEN 325 MG TABLET PO PRN (18:58)
[2019-09-03] MEDS: GUAIFENESIN 600 MG TABLET.SA PO SCH (22:06)
[2019-09-03] MEDS: ASPIRIN 81 MG TABLET, ENT COATED PO SCH (22:06)
[2019-09-04] MEDS: ALBUTEROL SULFATE 0.083% NEB 2.5 MG/3 ML AMPUL NEB PRN ×4 (03:56→16:14)
[2019-09-04 06:23] LABS: ABSOLUTE BASOPHILS # (AUTO) 0.1 10^3/uL (0.0-0.2); ABSOLUTE LYMPHOCYTES (AUTO) 1.3 10^3/uL (0.5-4.7); ABSOLUTE MONOCYTES (AUTO) 0.7 10^3/uL (0.1-1.4); ABSOLUTE NEUT (AUTO) 7.5 10^3/uL (1.7-8.2); BASOPHILS % (AUTO) 0.7 % (0-2); HEMATOCRIT 40.2 % (37.9-51.0); HEMOGLOBIN 13.7 g/dL (13.5-17.0); LYMPHOCYTES % (AUTO) 13.8 % (13-45); MEAN CORPUSCULAR HEMOGLOBIN 32.7 pg (27.0-33.4); MEAN CORPUSCULAR HGB CONC 34.1 g/dL (32.0-36.0); MEAN CORPUSCULAR VOLUME 96 fl (80-97); MONOCYTES % (AUTO) 7.5 % (3-13); PLATELET COUNT 169 10^3/uL (150-450); RED BLOOD COUNT 4.19 10^6/uL (4.35-5.55); RED CELL DISTRIBUTION WIDTH 13.2 % (11.5-14.0); TOTAL CELLS COUNTED % (AUTO) 100 %; WHITE BLOOD COUNT 9.6 10^3/uL (4.0-10.5)
[2019-09-04] MEDS: BUSPIRONE HCL 10 MG TABLET PO SCH ×2 (10:57→17:16)
[2019-09-04] MEDS: DOCUSATE SODIUM 100 MG/10 ML UDC PO SCH (10:58)
[2019-09-04] MEDS: ENOXAPARIN SODIUM INJ 40 MG/0.4 ML DISP.SYRIN SUBCUT SCH (10:58)
[2019-09-04] MEDS: GUAIFENESIN 600 MG TABLET.SA PO SCH ×2 (10:58→22:13)
[2019-09-04] MEDS: SIMVASTATIN 40 MG TABLET PO SCH (10:58)
[2019-09-04] MEDS: METOPROLOL TARTRATE 25 MG TABLET PO SCH ×2 (10:58→22:12)
[2019-09-04] MEDS: POTASSIUM CHLORIDE 10 MEQ TABLET.ER PO SCH (10:58)
[2019-09-04] MEDS: MAGNESIUM OXIDE 400 MG TABLET PO SCH (10:58)
[2019-09-04] MEDS: MEMANTINE HCL 10 MG TABLET PO SCH ×2 (10:58→22:12)
--- NOTE | 2019-09-04 12:24 | PDOC PROGRESS REPORT ---
Subjective Progress Note for:: 09/04/19 Subjective:: Patient seems cheerful today. Did not know that he was in the hospital. Also not oriented to date. However patient is pleasant and able to carry conversation. Denies any difficulty with word finding. Reason For Visit: METABOLIC ENCEPHALOPATHY,RULE OUT CVA,RULE OUT Physical Exam Vital Signs: Temp Pulse Resp BP Pulse Ox 100.3 F 89 16 171/93 H 96 09/04/19 07:04 09/04/19 08:40 09/04/19 08:40 09/04/19 07:04 09/04/19 08:40 Intake & Output 09/03/19 09/04/19 09/05/19 06:59 06:59 06:59 Intake Total 500 1219 Output Total 0 Balance 500 1219 Weight 123.1 kg 121 kg General appearance: PRESENT: no acute distress, cooperative Neck exam: ABSENT: JVD Respiratory exam: PRESENT: symmetrical, unlabored, wheezes - Mild expiratory. ABSENT: accessory muscle use, retraction, tachypnea Cardiovascular exam: PRESENT: RRR, +S1, +S2. ABSENT: tachycardia GI/Abdominal exam: PRESENT: normal bowel sounds, soft. ABSENT: rebound, rigid, tenderness Neurological exam: PRESENT: alert, awake, oriented to person. ABSENT: oriented to place, oriented to time, oriented to situation, aphasic Psychiatric exam: ABSENT: agitated, anxious Results Laboratory Results: 09/04/19 05:59 09/02/19 16:17 09/04/19 05:59 WBC 9.6 RBC 4.19 L Hgb 13.7 Hct 40.2 MCV 96 MCH 32.7 MCHC 34.1 RDW 13.2 Plt Count 169 Seg Neutrophils % 78.0 09/02/19 09/02/19 08:45 08:45 Troponin I < 0.012 NT-Pro-B Natriuret Pep 661 H Impressions: Chest X-Ray 09/02/19 08:51 IMPRESSION: NO ACUTE RADIOGRAPHIC FINDING IN THE CHEST. Head CT 09/02/19 09:16 IMPRESSION: Old lacunar infarcts in the right and left basal ganglia. No acute findings. EVIDENCE OF ACUTE STROKE: NO. Chest CT 09/02/19 13:20 IMPRESSION: No acute findings Head CTA 09/02/19 13:20 IMPRESSION: NO CTA EVIDENCE OF STENOSIS OR ANEURYSM OF THE [place]. NO CTA EVIDENCE OF SIGNIFICANT CAROTID BIFURCATION STENOSIS, CAROTID OR VERTEBRAL ARTERY DISSECTION. Neck CTA 09/02/19 13:20 IMPRESSION: NO CTA EVIDENCE OF STENOSIS OR ANEURYSM OF THE [place]. NO CTA EVIDENCE OF SIGNIFICANT CAROTID BIFURCATION STENOSIS, CAROTID OR VERTEBRAL ARTERY DISSECTION. Assessment and Plan - Diagnosis (1) Metabolic encephalopathy Is this a current diagnosis for this admission?: Yes Plan: Unclear etiology -CVA is less likely since currently patient is no longer aphasic and there is no focal pattern to patient's reported neuro deficits -CT head which showed old lacunar strokes but no new findings. MRI not obtainable given pacemaker. Chest x-ray showed no acute findings, CT chest showed no acute findings CTA head/neck showed no acute findings and showed patent blood vessels Ammonia normal and no evidence of UTI (2) Alzheimer's dementia Qualifiers: Alzheimer's disease onset: unspecified onset Dementia behavioral disturbance: with behavioral disturbance Qualified Code(s): G30.9 - Alzheimer's disease, unspecified; F02.81 - Dementia in other diseases classified elsewhere with behavioral disturbance Is this a current diagnosis for this admission?: Yes Plan: Severe and progressive PT/OT/SW evaluation (3) HTN (hypertension) Qualifiers: Hypertension type: essential hypertension Qualified Code(s): I10 - Essential (primary) hypertension Is this a current diagnosis for this admission?: Yes Plan: BP uncontrolled due to permissive hypertension on presentation -resume losartan and hydrochlorothiazide (4) History of stroke Is this a current diagnosis for this admission?: Yes Plan: Continue simvastatin and aspirin (5) AUGIE (obstructive sleep apnea) Is this a current diagnosis for this admission?: Yes Plan: Consistently noncompliant with CPAP per family; repeatedly pulls off his mask throughout the night due to dementia Doubt he is a candidate for any other AUGIE treatment modalities (6) Pacemaker Is this a current diagnosis for this admission?: Yes - Time Time Spent with patient: 15-24 minutes
[2019-09-04] MEDS ORDERED: LOSARTAN POTASSIUM 50 MG TABLET PO ONE (13:00)
[2019-09-04] MEDS: ACETAMINOPHEN 325 MG TABLET PO PRN (15:15)
[2019-09-04] MEDS: RANOLAZINE 500 MG TAB.SR.12H PO SCH (22:12)
[2019-09-04] MEDS: ALPRAZOLAM 0.5 MG TABLET PO PRN ×2 (22:12)
[2019-09-04] MEDS: PROMETHAZINE HCL INJ 25 MG/1 ML VIAL IV PRN (22:12)
[2019-09-04] MEDS: ASPIRIN 81 MG TABLET, ENT COATED PO SCH (22:12)
[2019-09-05 06:37] LABS: ABSOLUTE LYMPHOCYTES (AUTO) 1.4 10^3/uL (0.5-4.7); ABSOLUTE MONOCYTES (AUTO) 0.7 10^3/uL (0.1-1.4); ABSOLUTE NEUT (AUTO) 4.7 10^3/uL (1.7-8.2); BASOPHILS % (AUTO) 0.4 % (0-2); EOSINOPHILS % (AUTO) 0.3 % (0-6); HEMATOCRIT 42.7 % (37.9-51.0); HEMOGLOBIN 14.5 g/dL (13.5-17.0); LYMPHOCYTES % (AUTO) 19.9 % (13-45); MEAN CORPUSCULAR HEMOGLOBIN 32.9 pg (27.0-33.4); MEAN CORPUSCULAR HGB CONC 33.9 g/dL (32.0-36.0); MEAN CORPUSCULAR VOLUME 97 fl (80-97); MONOCYTES % (AUTO) 9.9 % (3-13); PLATELET COUNT 168 10^3/uL (150-450); RED BLOOD COUNT 4.41 10^6/uL (4.35-5.55); RED CELL DISTRIBUTION WIDTH 13.6 % (11.5-14.0); SEGMENTED NEUTROPHILS % (AUTO) 69.5 % (42-78); TOTAL CELLS COUNTED % (AUTO) 100 %; WHITE BLOOD COUNT 6.8 10^3/uL (4.0-10.5)
[2019-09-05] MEDS: ALBUTEROL SULFATE 0.083% NEB 2.5 MG/3 ML AMPUL NEB PRN (08:45)
[2019-09-05] MEDS: METOPROLOL TARTRATE 25 MG TABLET PO SCH ×2 (09:29→22:50)
[2019-09-05] MEDS: MAGNESIUM OXIDE 400 MG TABLET PO SCH (09:29)
[2019-09-05] MEDS: GUAIFENESIN 600 MG TABLET.SA PO SCH ×2 (09:29→22:50)
[2019-09-05] MEDS: LOSARTAN POTASSIUM 50 MG TABLET PO SCH (09:29)
[2019-09-05] MEDS: MEMANTINE HCL 10 MG TABLET PO SCH ×2 (09:30→22:50)
[2019-09-05] MEDS: POTASSIUM CHLORIDE 10 MEQ TABLET.ER PO SCH (09:30)
[2019-09-05] MEDS: SIMVASTATIN 40 MG TABLET PO SCH (09:30)
[2019-09-05] MEDS: RANOLAZINE 500 MG TAB.SR.12H PO SCH ×2 (09:30→22:50)
[2019-09-05] MEDS: BUSPIRONE HCL 10 MG TABLET PO SCH ×2 (09:30→17:17)
[2019-09-05] MEDS: ENOXAPARIN SODIUM INJ 40 MG/0.4 ML DISP.SYRIN SUBCUT SCH (09:31)
[2019-09-05] MEDS: DOCUSATE SODIUM 100 MG/10 ML UDC PO SCH (09:31)
[2019-09-05] MEDS ORDERED: ALBUTEROL SULFATE 0.083% NEB 2.5 MG/3 ML AMPUL NEB PRN (12:42)
--- NOTE | 2019-09-05 12:59 | PDOC PROGRESS REPORT ---
Subjective Progress Note for:: 09/05/19 Subjective:: Patient was a little bit restless yesterday night and this morning upon attempting to stand up without assistance and pulling out IVs. He was placed in soft mittens and subsequently had to be placed in restraints transiently. At this time he appears much calmer. He has simply just had some owning. He otherwise denies any chest pain or shortness of breath. Still endorses some congestion from his bronchitis. Reason For Visit: METABOLIC ENCEPHALOPATHY,RULE OUT CVA,RULE OUT Physical Exam Vital Signs: Temp Pulse Resp BP Pulse Ox 97.8 F 75 16 138/69 H 96 09/05/19 11:43 09/05/19 11:43 09/05/19 11:43 09/05/19 11:43 09/05/19 11:43 Intake & Output 09/04/19 09/05/19 09/06/19 06:59 06:59 06:59 Intake Total 1219 460 Balance 1219 460 Weight 121 kg 124.2 kg General appearance: PRESENT: no acute distress, cooperative Neck exam: ABSENT: JVD Respiratory exam: PRESENT: rhonchi, symmetrical, unlabored, wheezes. ABSENT: accessory muscle use, tachypnea Cardiovascular exam: PRESENT: RRR, +S1, +S2. ABSENT: tachycardia GI/Abdominal exam: PRESENT: soft. ABSENT: normal bowel sounds, rebound, rigid, tenderness Neurological exam: PRESENT: alert, awake, oriented to person, oriented to place. ABSENT: oriented to time, oriented to situation Psychiatric exam: ABSENT: agitated, anxious Results Laboratory Results: 09/05/19 05:44 09/02/19 16:17 09/05/19 05:44 WBC 6.8 RBC 4.41 Hgb 14.5 Hct 42.7 MCV 97 MCH 32.9 MCHC 33.9 RDW 13.6 Plt Count 168 Seg Neutrophils % 69.5 09/02/19 11:00 Catheterized Urine Urine Culture - Final NO GROWTH 2 DAYS 09/02/19 09/02/19 08:45 08:45 Troponin I < 0.012 NT-Pro-B Natriuret Pep 661 H Impressions: Chest X-Ray 09/02/19 08:51 IMPRESSION: NO ACUTE RADIOGRAPHIC FINDING IN THE CHEST. Head CT 09/02/19 09:16 IMPRESSION: Old lacunar infarcts in the right and left basal ganglia. No acute findings. EVIDENCE OF ACUTE STROKE: NO. Chest CT 09/02/19 13:20 IMPRESSION: No acute findings Head CTA 09/02/19 13:20 IMPRESSION: NO CTA EVIDENCE OF STENOSIS OR ANEURYSM OF THE [place]. NO CTA EVIDENCE OF SIGNIFICANT CAROTID BIFURCATION STENOSIS, CAROTID OR VERTEBRAL ARTERY DISSECTION. Neck CTA 09/02/19 13:20 IMPRESSION: NO CTA EVIDENCE OF STENOSIS OR ANEURYSM OF THE [place]. NO CTA EVIDENCE OF SIGNIFICANT CAROTID BIFURCATION STENOSIS, CAROTID OR VERTEBRAL ARTERY DISSECTION. Assessment and Plan - Diagnosis (1) Metabolic encephalopathy Is this a current diagnosis for this admission?: Yes Plan: Unclear etiology. Possible delirium as well. -CT head which showed old lacunar strokes but no new findings. MRI not obtainable given pacemaker. Chest x-ray showed no acute findings, CT chest showed no acute findings CTA head/neck showed no acute findings and showed patent blood vessels Ammonia normal and no evidence of UTI -CVA, though a possibility, is less likely since currently patient is no longer aphasic and there is no focal pattern to patient's reported neuro deficits. Regardless if it was a stroke, patient is receiving adequate treatment with aspirin and statin for which have changed his regimen from simvastatin to atorvastatin 40 mg nightly. No need for repeat imaging at this time. (2) Dementia in Alzheimer's disease with delirium Is this a current diagnosis for this admission?: Yes Plan: Had some delirium/sundowning yesterday night and early this morning. At this point he does not require any restraints and restraints have been discontinued. We will approach situation with behavior modifications including redirection Will also discontinue Xanax as this may contribute to delirium. Continue busp irone and start on low-dose Seroquel 25 mg nightly. (3) HTN (hypertension) Qualifiers: Hypertension type: essential hypertension Qualified Code(s): I10 - Essential (primary) hypertension Is this a current diagnosis for this admission?: Yes Plan: BP now controlled with resumption of losartan and hydrochlorothiazide (4) Acute bronchitis Qualifiers: Bronchitis organism: other organism Qualified Code(s): J20.8 - Acute bronchitis due to other specified organisms Is this a current diagnosis for this admission?: Yes Plan: Likely viral. Has some reactive airway bronchospasms. Continue supportive care with guaifenesin, flutter valve and neb treatments. (5) History of stroke Is this a current diagnosis for this admission?: Yes Plan: Continue statin and aspirin. Statin changed to atorvastatin 40 mg daily. (6) AUGIE (obstructive sleep apnea) Is this a current diagnosis for this admission?: Yes Plan: Consistently noncompliant with CPAP per family; repeatedly pulls off his mask throughout the night due to dementia Doubt he is a candidate for any other AUGIE treatment modalities (7) Pacemaker Is this a current diagnosis for this admission?: Yes - Plan Summary Summary: Awaiting placement at SNF as family now opting for rehab - Time Time Spent with patient: 15-24 minutes
[2019-09-05] MEDS: HYDROCHLOROTHIAZIDE 25 MG TABLET PO SCH (13:06)
[2019-09-05] MEDS: ALBUTEROL SULFATE 0.083% NEB 2.5 MG/3 ML AMPUL NEB SCH ×2 (14:27→20:58)
[2019-09-05] MEDS: ASPIRIN 81 MG TABLET, ENT COATED PO SCH (22:49)
[2019-09-05] MEDS: QUETIAPINE FUMARATE 25 MG TABLET PO SCH (22:50)
[2019-09-05] MEDS: ATORVASTATIN CALCIUM 40 MG TABLET PO SCH (22:50)
[2019-09-05] MEDS ORDERED: SCOPOLAMINE HYDROBROMIDE 1.5 MG PATCH.TD72 ONE (23:49)
[2019-09-05] MEDS ORDERED: FLUTICASONE NASAL SPRAY 50 MCG/SPRY 120 SPRAY/16 GM ONE (23:53)
[2019-09-05] MEDS: FLUTICASONE NASAL SPRAY 50 MCG/SPRY 120 SPRAY/16 GM NASL SCH (23:57)
[2019-09-05] MEDS ORDERED: SCOPOLAMINE HYDROBROMIDE 1.5 MG PATCH.TD72 TD ONE (23:59)
[2019-09-06] MEDS: ALBUTEROL SULFATE 0.083% NEB 2.5 MG/3 ML AMPUL NEB SCH ×3 (08:26→20:43)
[2019-09-06] MEDS: RANOLAZINE 500 MG TAB.SR.12H PO SCH ×2 (09:14→22:01)
[2019-09-06] MEDS: HYDROCHLOROTHIAZIDE 25 MG TABLET PO SCH (09:16)
[2019-09-06] MEDS: GUAIFENESIN 600 MG TABLET.SA PO SCH ×2 (09:16→22:03)
[2019-09-06] MEDS: MEMANTINE HCL 10 MG TABLET PO SCH ×2 (09:16→22:03)
[2019-09-06] MEDS: BUSPIRONE HCL 10 MG TABLET PO SCH ×2 (09:16→17:36)
[2019-09-06] MEDS: MAGNESIUM OXIDE 400 MG TABLET PO SCH (09:17)
[2019-09-06] MEDS: ENOXAPARIN SODIUM INJ 40 MG/0.4 ML DISP.SYRIN SUBCUT SCH (09:17)
[2019-09-06] MEDS: POTASSIUM CHLORIDE 10 MEQ TABLET.ER PO SCH (09:17)
[2019-09-06] MEDS: DOCUSATE SODIUM 100 MG/10 ML UDC PO SCH (09:17)
[2019-09-06] MEDS: METOPROLOL TARTRATE 25 MG TABLET PO SCH ×2 (09:17→22:04)
[2019-09-06] MEDS: LOSARTAN POTASSIUM 50 MG TABLET PO SCH (09:17)
[2019-09-06] MEDS: FLUTICASONE NASAL SPRAY 50 MCG/SPRY 120 SPRAY/16 GM NASL SCH ×2 (09:21→22:01)
[2019-09-06] MEDS ORDERED: ERGOCALCIFEROL (VITAMIN D2) 50000 UNIT (1.25 MG) CAPSULE PO SCH (10:00)
--- NOTE | 2019-09-06 14:46 | PDOC PROGRESS REPORT ---
Subjective Progress Note for:: 09/06/19 Subjective:: Patient feels well. No get delirious last night but currently being more this afternoon after family left patient's room. Patient appears to be very easily redirectable when family is around. No aggressive behavior noted by staff. Reason For Visit: METABOLIC ENCEPHALOPATHY,RULE OUT CVA,RULE OUT Physical Exam Vital Signs: Temp Pulse Resp BP Pulse Ox 97.8 F 72 16 138/79 H 92 09/06/19 03:27 09/06/19 14:08 09/06/19 14:08 09/06/19 03:27 09/06/19 14:08 Intake & Output 09/05/19 09/06/19 09/07/19 06:59 06:59 06:59 Intake Total 460 360 600 Output Total 800 Balance 460 -440 600 Weight 124.2 kg 122.3 kg General appearance: PRESENT: no acute distress, cooperative Neck exam: ABSENT: JVD Respiratory exam: PRESENT: tachypnea, wheezes. ABSENT: accessory muscle use, symmetrical, unlabored Cardiovascular exam: PRESENT: +S1, +S2. ABSENT: tachycardia Neurological exam: PRESENT: alert, awake, oriented to person, oriented to place, other - Very forgetful and does not recollect some prior events. ABSENT: oriented to time, oriented to situation Results Laboratory Results: 09/05/19 05:44 09/02/19 16:17 09/02/19 09/02/19 08:45 08:45 Troponin I < 0.012 NT-Pro-B Natriuret Pep 661 H Impressions: Chest X-Ray 09/02/19 08:51 IMPRESSION: NO ACUTE RADIOGRAPHIC FINDING IN THE CHEST. Head CT 09/02/19 09:16 IMPRESSION: Old lacunar infarcts in the right and left basal ganglia. No acute findings. EVIDENCE OF ACUTE STROKE: NO. Chest CT 09/02/19 13:20 IMPRESSION: No acute findings Head CTA 09/02/19 13:20 IMPRESSION: NO CTA EVIDENCE OF STENOSIS OR ANEURYSM OF THE [place]. NO CTA EVIDENCE OF SIGNIFICANT CAROTID BIFURCATION STENOSIS, CAROTID OR VERTEBRAL ARTERY DISSECTION. Neck CTA 09/02/19 13:20 IMPRESSION: NO CTA EVIDENCE OF STENOSIS OR ANEURYSM OF THE [place]. NO CTA EVIDENCE OF SIGNIFICANT CAROTID BIFURCATION STENOSIS, CAROTID OR VERTEBRAL ARTERY DISSECTION. Assessment and Plan - Diagnosis (1) Metabolic encephalopathy Is this a current diagnosis for this admission?: Yes Plan: Unclear etiology. Possible delirium as well. -CT head which showed old lacunar strokes but no new findings. MRI not obtainable given pacemaker. Chest x-ray showed no acute findings, CT chest showed no acute findings CTA head/neck showed no acute findings and showed patent blood vessels Ammonia normal and no evidence of UTI -CVA, though a possibility, is less likely since currently patient is no longer aphasic and there is no focal pattern to patient's reported neuro deficits. Regardless if it was a stroke, patient is receiving adequate treatment with aspirin and statin for which have changed his regimen from simvastatin to atorvastatin 40 mg nightly. No need for repeat imaging at this time. (2) Dementia in Alzheimer's disease with delirium Is this a current diagnosis for this admission?: Yes Plan: Had some delirium/sundowning yesterday night and early this morning. At this point he does not require any restraints and restraints have been discontinued. We will approach situation with behavior modifications including redirection Discontinued Xanax as this may contribute to delirium. Continue buspirone and started on low-dose Seroquel 25 mg nightly. (3) HTN (hypertension) Qualifiers: Hypertension type: essential hypertension Qualified Code(s): I10 - Essential (primary) hypertension Is this a current diagnosis for this admission?: Yes (4) Acute bronchitis Qualifiers: Bronchitis organism: other organism Qualified Code(s): J20.8 - Acute bronchitis due to other specified organisms Is this a current diagnosis for this admission?: Yes Plan: Likely viral. Has some reactive airway bronchospasms. Continue supportive care with guaifenesin, Flonase, flutter valve and neb treatments. (5) History of stroke Is this a current diagnosis for this admission?: Yes (6) AUGIE (obstructive sleep apnea) Is this a current diagnosis for this admission?: Yes (7) Pacemaker Is this a current diagnosis for this admission?: Yes - Plan Summary Summary: Discussed plan with patient's daughter who was at bedside Awaiting placement at SNF. Remains medically cleared. - Time Time Spent with patient: 15-24 minutes
[2019-09-06] MEDS ORDERED: HALOPERIDOL 2 MG TABLET PO ONE (15:00)
[2019-09-06] MEDS ORDERED: HALOPERIDOL LACTATE INJ 5 MG/1 ML VIAL ONE (15:23)
[2019-09-06] MEDS ORDERED: TRAZODONE HCL 50 MG TABLET PO ONE (16:18)
[2019-09-06] MEDS ORDERED: HALOPERIDOL LACTATE INJ 5 MG/1 ML VIAL IV ONE (17:00)
[2019-09-06] MEDS ORDERED: QUETIAPINE FUMARATE 25 MG TABLET PO ONE (17:00)
[2019-09-06] MEDS: ASPIRIN 81 MG TABLET, ENT COATED PO SCH (22:01)
[2019-09-06] MEDS: QUETIAPINE FUMARATE 25 MG TABLET PO SCH (22:03)
[2019-09-06] MEDS: ATORVASTATIN CALCIUM 40 MG TABLET PO SCH (22:03)
[2019-09-06] MEDS: ACETAMINOPHEN 325 MG TABLET PO PRN (22:05)
[2019-09-07] MEDS: ALBUTEROL SULFATE 0.083% NEB 2.5 MG/3 ML AMPUL NEB SCH ×2 (08:54→13:57)
[2019-09-07] MEDS: RANOLAZINE 500 MG TAB.SR.12H PO SCH (09:26)
[2019-09-07] MEDS: DOCUSATE SODIUM 100 MG/10 ML UDC PO SCH (09:26)
[2019-09-07] MEDS: FLUTICASONE NASAL SPRAY 50 MCG/SPRY 120 SPRAY/16 GM NASL SCH (09:26)
[2019-09-07] MEDS: HYDROCHLOROTHIAZIDE 25 MG TABLET PO SCH (09:26)
[2019-09-07] MEDS: LOSARTAN POTASSIUM 50 MG TABLET PO SCH (09:26)
[2019-09-07] MEDS: METOPROLOL TARTRATE 25 MG TABLET PO SCH (09:26)
[2019-09-07] MEDS: MAGNESIUM OXIDE 400 MG TABLET PO SCH (09:26)
[2019-09-07] MEDS: POTASSIUM CHLORIDE 10 MEQ TABLET.ER PO SCH (09:26)
[2019-09-07] MEDS: BUSPIRONE HCL 10 MG TABLET PO SCH (09:26)
[2019-09-07] MEDS: GUAIFENESIN 600 MG TABLET.SA PO SCH (09:26)
[2019-09-07] MEDS: MEMANTINE HCL 10 MG TABLET PO SCH (09:27)
[2019-09-07] MEDS: ENOXAPARIN SODIUM INJ 40 MG/0.4 ML DISP.SYRIN SUBCUT SCH (09:29)
--- NOTE | 2019-09-07 11:50 | PDOC TRANSFER SUMMARY ---
Impression - Admit/DC Date/PCP Admission Date/Primary Care Provider: 09/02/19 17:15 CHUCKY GARY MD Discharge Date: 09/07/19 - Discharge Diagnosis (1) Dementia in Alzheimer's disease with delirium Is this a current diagnosis for this admission?: Yes (2) Metabolic encephalopathy Is this a current diagnosis for this admission?: Yes (3) HTN (hypertension) Is this a current diagnosis for this admission?: Yes (4) Acute bronchitis Is this a current diagnosis for this admission?: Yes (5) History of stroke Is this a current diagnosis for this admission?: Yes (6) AUGIE (obstructive sleep apnea) Is this a current diagnosis for this admission?: Yes (7) Pacemaker Is this a current diagnosis for this admission?: Yes (8) Ambulatory dysfunction Is this a current diagnosis for this admission?: Yes - Assessment Summary: Patient was brought in for evaluation of weakness in his lower extremities. On presentation the involved bilateral lower extremities. There was initial concern that he could have been experiencing a stroke. However on further review, patient's symptoms were of nonfocal pattern suggesting likely just deconditioning of his muscles which is not uncommon especially in setting of prior strokes and dementia. CT scan including head CT without contrast and CT of the head and neck did not reveal any new stroke. MRI was not obtainable. Stroke is less likely on the differential however even if there were to be a new stroke patient's medication therapy has been optimized and he has been placed on high intensity statin atorvastatin instead of simvastatin and he is to continue his aspirin 81 mg daily. Patient is medically cleared. He has been receiving treatments with flutter valve, guaifenesin as needed and Flonase for bronchitis suspected viral. Patient also noted to have some reactive bronchospasms for which she has been receiving nebulizer treatments. Patient was started on Seroquel for occasional episodes of delirium. Refer to below for extensive plan. (1) Metabolic encephalopathy Is this a current diagnosis for this admission?: Yes Plan: Unclear etiology. Possible delirium as well. -CT head which showed old lacunar strokes but no new findings. MRI not obtainab le given pacemaker. Chest x-ray showed no acute findings, CT chest showed no acute findings CTA head/neck showed no acute findings and showed patent blood vessels Ammonia normal and no evidence of UTI -CVA, though a possibility, is less likely since currently patient is no longer aphasic and there is no focal pattern to patient's reported neuro deficits. Regardless if it was a stroke, patient is receiving adequate treatment with aspirin and statin for which have changed his regimen from simvastatin to atorvastatin 40 mg nightly. No need for repeat imaging at this time. (2) Dementia in Alzheimer's disease with delirium Is this a current diagnosis for this admission?: Yes Plan: Had some delirium/sundowning occasionally especially in the absence of his family members. approach situation with behavior modifications including redirection Discontinued Xanax as this may contribute to delirium. Continue buspirone and started on low-dose Seroquel 25 mg nightly. (3) HTN (hypertension) Qualifiers: Hypertension type: essential hypertension Qualified Code(s): I10 - Essential (primary) hypertension Is this a current diagnosis for this admission?: Yes Continue hydrochlorothiazide and losartan (4) Acute bronchitis Qualifiers: Bronchitis organism: other organism Qualified Code(s): J20.8 - Acute bronchitis due to other specified organisms Is this a current diagnosis for this admission?: Yes Plan: Likely viral. Has some reactive airway bronchospasms. Continue supportive care with guaifenesin, Flonase, flutter valve and neb treatments. (5) History of stroke Is this a current diagnosis for this admission?: Yes (6) AUGIE (obstructive sleep apnea) Is this a current diagnosis for this admission?: Yes (7) Pacemaker Is this a current diagnosis for this admission?: Yes - Additional Information Resuscitation Status: Do Not Resuscitate Referrals: CHUCKY GARY MD [Primary Care Provider] - 09/14/19 1:15 pm Home Medications: Aspirin [Adult Low Dose Aspirin EC] 81 mg PO QHS 09/02/19 Buspirone HCl [Buspar 30 mg Tablet] 1 tab PO BID 09/02/19 Ergocalciferol (Vitamin D2) [Vitamin D2] 50,000 unit PO WE@1000 09/02/19 Losartan/Hydrochlorothiazide [Losartan-Hctz 100-25 mg Tab] 1 each PO DAILY 09/02/19 Magnesium Oxide [Magox] 400 mg PO DAILY 09/02/19 Memantine HCl [Namenda] 5 mg PO Q12 09/02/19 Metoprolol Tartrate [Lopressor 25 mg Tablet] 25 mg PO Q12 09/02/19 Potassium Chloride [K-Tab ER] 10 meq PO DAILY 09/02/19 Ranolazine [Ranexa 500 mg Tab.sr] 500 mg PO Q12 09/02/19 Acetaminophen [Tylenol 325 mg Tablet] 650 mg PO Q4HP PRN tablet 09/07/19 Albuterol Sulfate [Ventolin 0.083% Neb 2.5 mg/3 mL Ampul] 2.5 mg NEB RTQ6HP PRN vial.neb 09/07/19 Atorvastatin Calcium [Lipitor 40 mg Tablet] 40 mg PO QHS tablet 09/07/19 Fluticasone Propionate [Flonase Nasal [place] 50 Mcg/[place] 16 gm] 2 spray NASL Q12 spray.pump 09/07/19 Guaifenesin [Mucinex Sr 600 mg Tablet.sa] 600 mg PO Q12 tablet.sa 09/07/19 Quetiapine Fumarate [Seroquel 25 mg Tablet] 25 mg PO QHS tablet 09/07/19 History of Present Illiness History of Present Illness: ROSALIA NIX is a 73 year old male with past medical history significant for prior stroke, HTN, HLD, pacemaker implanted, Alzheimer's dementia who presents to ED for 1 day history of word finding difficulty/dizziness/lightheadedness and a 1 week history of dry cough and reported congestion without sputum production. History obtained from patient's family at bedside as patient has severe dementia. Family denies patient having fever/chills/nausea/vomiting/diarrhea/abdominal pain/one-sided weakness or numbness. They state that what concerned him enough to bring patient to the [facility] is that he was no longer able to walk or lift his legs and had been refusing food and drink for the past 24 hours. Of note, patient has CT evidence here of a prior lacunar stroke but nothing acute on this head CT here. Chest x- ray did not show any acute process. Labs did not show any specific abnormality other than mildly elevated BNP. Negative troponin. Admitted for further work- up and evaluation. Physical Exam Vital Signs: Temp Pulse Resp BP Pulse Ox 98.1 F 84 18 151/79 H 94 09/07/19 07:32 09/07/19 08:54 09/07/19 08:54 09/07/19 07:32 09/07/19 08:54 Intake & Output 09/06/19 09/07/19 09/08/19 06:59 06:59 06:59 Intake Total 360 1375 Output Total 800 Balance -440 1375 Weight 122.3 kg 124.3 kg General appearance: PRESENT: no acute distress, cooperative Neck exam: ABSENT: JVD Respiratory exam: PRESENT: symmetrical, unlabored, wheezes - Mild expiratory wheeze. ABSENT: tachypnea Cardiovascular exam: PRESENT: RRR, +S1, +S2. ABSENT: tachycardia GI/Abdominal exam: PRESENT: normal bowel sounds, soft. ABSENT: rebound, rigid, tenderness Neurological exam: PRESENT: alert, awake, oriented to person. ABSENT: oriented to place, oriented to time, oriented to situation Psychiatric exam: ABSENT: agitated, anxious Results Laboratory Results: WBC 6.8 10^3/uL (4.0-10.5) 09/05/19 05:44 RBC 4.41 10^6/uL (4.35-5.55) 09/05/19 05:44 Hgb 14.5 g/dL (13.5-17.0) 09/05/19 05:44 Hct 42.7 % (37.9-51.0) 09/05/19 05:44 MCV 97 fl (80-97) 09/05/19 05:44 MCH 32.9 pg (27.0-33.4) 09/05/19 05:44 MCHC 33.9 g/dL (32.0-36.0) 09/05/19 05:44 RDW 13.6 % (11.5-14.0) 09/05/19 05:44 Plt Count 168 10^3/uL (150-450) 09/05/19 05:44 Lymph % (Auto) 19.9 % (13-45) 09/05/19 05:44 [place] % (Auto) 9.9 % (3-13) 09/05/19 05:44 Eos % (Auto) 0.3 % (0-6) 09/05/19 05:44 Baso % (Auto) 0.4 % (0-2) 09/05/19 05:44 Absolute Neuts (auto) 4.7 10^3/uL (1.7-8.2) 09/05/19 05:44 Absolute Lymphs (auto) 1.4 10^3/uL (0.5-4.7) 09/05/19 05:44 Absolute Monos (auto) 0.7 10^3/uL (0.1-1.4) 09/05/19 05:44 Absolute Eos (auto) 0.0 10^3/uL (0.0-0.6) 09/05/19 05:44 Absolute Basos (auto) 0.0 10^3/uL (0.0-0.2) 09/05/19 05:44 Seg Neutrophils % 69.5 % (42-78) 09/05/19 05:44 Carbonic Acid 1.26 mmol/L (1.05-1.35) 09/02/19 10:48 HCO3/H2CO3 Ratio 22:1 09/02/19 10:48 ABG pH 7.45 (7.35-7.45) 09/02/19 10:48 ABG pCO2 42.0 mmHg (35-45) 09/02/19 10:48 ABG pO2 80.7 mmHg (80-100) 09/02/19 10:48 ABG HCO3 28.7 mmol/L (20-24) H 09/02/19 10:48 ABG Total CO2 30.0 mmol/L (23-27) H 09/02/19 10:48 ABG O2 Saturation 96.4 % (94-98) 09/02/19 10:48 ABG Base Excess 4.2 mmol/L 09/02/19 10:48 FiO2 3L NC 09/02/19 10:48 Sodium 139.2 mmol/L (137-145) 09/02/19 16:17 Potassium 3.7 mmol/L (3.6-5.0) 09/02/19 16:17 Chloride 101 mmol/L (98-107) 09/02/19 16:17 Carbon Dioxide 26 mmol/L (22-30) 09/02/19 16:17 Anion Gap 12 (5-19) 09/02/19 16:17 BUN 10 mg/dL (7-20) 09/02/19 16:17 Creatinine 0.90 mg/dL (0.52-1.25) 09/02/19 16:17 Est GFR ( Amer) > 60 (>60) 09/02/19 16:17 Est GFR (MDRD) Non-Af > 60 (>60) 09/02/19 16:17 Glucose 167 mg/dL (75-110) H 09/02/19 16:17 Hemoglobin A1c % 4.9 % (4.7-6.0) 09/03/19 05:02 Lactic Acid 1.3 mmol/L (0.7-2.1) 09/02/19 08:45 Calcium 9.1 mg/dL (8.4-10.2) 09/02/19 16:17 Magnesium 2.2 mg/dL (1.6-2.3) 09/03/19 05:02 Total Bilirubin 0.8 mg/dL (0.2-1.3) 09/02/19 08:45 Direct Bilirubin 0.0 mg/dL (0.0-0.4) 09/02/19 08:45 Neonat Total Bilirubin Not Reportable 09/02/19 08:45 Neonat Direct Bilirubin Not Reportable 09/02/19 08:45 Neonat Indirect Bili Not Reportable 09/02/19 08:45 AST 55 U/L (17-59) 09/02/19 08:45 ALT 31 U/L (<50) 09/02/19 08:45 Alkaline Phosphatase 81 U/L (38-126) 09/02/19 08:45 Ammonia 26.0 umol/L (9-33) 09/03/19 05:02 Troponin I < 0.012 ng/mL 09/02/19 08:45 NT-Pro-B Natriuret Pep 661 pg/mL (<125) H 09/02/19 08:45 Total Protein 7.6 g/dL (6.3-8.2) 09/02/19 08:45 Albumin 4.4 g/dL (3.5-5.0) 09/02/19 08:45 TSH 1.27 uIU/mL (0.47-4.68) 09/03/19 05:02 Urine Color YELLOW 09/02/19 11:00 Urine Appearance CLEAR 09/02/19 11:00 Urine pH 6.0 (5.0-9.0) 09/02/19 11:00 Ur Specific [place] 1.020 09/02/19 11:00 Urine Protein 30 mg/dL (NEGATIVE) H 09/02/19 11:00 Urine Glucose (UA) NEGATIVE mg/dL (NEGATIVE) 09/02/19 11:00 Urine Ketones NEGATIVE mg/dL (NEGATIVE) 09/02/19 11:00 Urine Blood NEGATIVE (NEGATIVE) 09/02/19 11:00 Urine Nitrite (Reflex) NEGATIVE (NEGATIVE) 09/02/19 11:00 Urine Bilirubin NEGATIVE (NEGATIVE) 09/02/19 11:00 Urine Urobilinogen 4.0 mg/dL (<2.0) H 09/02/19 11:00 Leukocyte Esterase Rfl NEGATIVE (NEGATIVE) 09/02/19 11:00 Urine RBC (Auto) 4 /HPF 09/02/19 11:00 U Hyaline Cast (Auto) 1 /LPF 09/02/19 11:00 Urine WBC (Reflex) < 1 /HPF 09/02/19 11:00 Squamous Epi Cells Auto <1 /HPF 09/02/19 11:00 Urine Mucus (Auto) RARE /LPF 09/02/19 11:00 Urine Ascorbic Acid NEGATIVE (NEGATIVE) 09/02/19 11:00 09/02/19 09/02/19 08:45 08:45 Troponin I < 0.012 NT-Pro-B Natriuret Pep 661 H Impressions: Chest X-Ray 09/02/19 08:51 IMPRESSION: NO ACUTE RADIOGRAPHIC FINDING IN THE CHEST. Head CT 09/02/19 09:16 IMPRESSION: Old lacunar infarcts in the right and left basal ganglia. No acute findings. EVIDENCE OF ACUTE STROKE: NO. Chest CT 09/02/19 13:20 IMPRESSION: No acute findings Head CTA 09/02/19 13:20 IMPRESSION: NO CTA EVIDENCE OF STENOSIS OR ANEURYSM OF THE [place]. NO CTA EVIDENCE OF SIGNIFICANT CAROTID BIFURCATION STENOSIS, CAROTID OR VERTEBRAL ARTERY DISSECTION. Neck CTA 09/02/19 13:20 IMPRESSION: NO CTA EVIDENCE OF STENOSIS OR ANEURYSM OF THE [place]. NO CTA EVIDENCE OF SIGNIFICANT CAROTID BIFURCATION STENOSIS, CAROTID OR VERTEBRAL ARTERY DISSECTION. Plan Time Spent: Less than 30 Minutes Stroke Is this a Stroke Patient?: Yes Acute Heart Failure - Is this a Heart Failure Patient?: No
[2019-09-07 12:08] VITALS: BP 144/90
== END 2019-09-07 16:36 | DRG 57 ==
LOC: ER 08:28 → EH 14:47 → UNDOADMIN 14:47 → EH 17:15 → 3S 18:21
PROVIDERS: ADMIT Internal Medicine; ATTEND Internal Medicine
DX: G30.9 Alzheimer's disease, unspecified (principal); F02.81 Dementia in other diseases classified elsewhere, unspecified severity, with behavioral disturbance; F05 Delirium due to known physiological condition; E78.5 Hyperlipidemia, unspecified; J20.8 Acute bronchitis due to other specified organisms; I10 Essential (primary) hypertension; G47.33 Obstructive sleep apnea (adult) (pediatric); Z86.73 Personal history of transient ischemic attack (TIA), and cerebral infarction without residual deficits; Z79.82 Long term (current) use of aspirin; Z79.899 Other long term (current) drug therapy; Z88.8 Allergy status to other drugs, medicaments and biological substances; Z91.19 Patient's noncompliance with other medical treatment and regimen; Z95.0 Presence of cardiac pacemaker; Z78.1 Physical restraint status
CPT/HCPCS: 36415; 70450; 70496; 70498; 71045; 71260; 80053; 81001; 82140; 82803; 83036; 83605; 83735; 83880; 84443; 84484; 85025; 87040; 87086; 93005; 93010; 94640; 94667; 96361; 96365; 96375; 99285; J0456; J0696; J1630; J1650; J2550; J2930; J3490; J7040; J7060; J7620

== ENCOUNTER → 2019-12-15 | Outpatient (CLI) | payer MEDICARE, BC ==
[2019-12-15 08:24] LABS: ABSOLUTE EOSINOPHILS # (AUTO) 0.2 10^3/uL (0.0-0.6); ABSOLUTE LYMPHOCYTES (AUTO) 2.9 10^3/uL (0.5-4.7); ABSOLUTE MONOCYTES (AUTO) 0.6 10^3/uL (0.1-1.4); ABSOLUTE NEUT (AUTO) 4.8 10^3/uL (1.7-8.2); BASOPHILS % (AUTO) 0.5 % (0-2); EOSINOPHILS % (AUTO) 2.1 % (0-6); HEMATOCRIT 40.5 % (37.9-51.0); LYMPHOCYTES % (AUTO) 34.3 % (13-45); MEAN CORPUSCULAR HGB CONC 34.6 g/dL (32.0-36.0); MEAN CORPUSCULAR VOLUME 98 fl (80-97); MONOCYTES % (AUTO) 7.3 % (3-13); PLATELET COUNT 227 10^3/uL (150-450); RED BLOOD COUNT 4.12 10^6/uL (4.35-5.55); RED CELL DISTRIBUTION WIDTH 12.9 % (11.5-14.0); SEGMENTED NEUTROPHILS % (AUTO) 55.8 % (42-78); TOTAL CELLS COUNTED % (AUTO) 100 %; WHITE BLOOD COUNT 8.5 10^3/uL (4.0-10.5)
[2019-12-15 08:48] LABS: ALBUMIN 4.4 g/dL (3.5-5.0); ALKALINE PHOSPHATASE 80 U/L (38-126); ANION GAP 8 (5-19); ASPARTATE AMINO TRANSFERASE 28 U/L (17-59); BLOOD UREA NITROGEN 15 mg/dL (7-20); CALCIUM 9.3 mg/dL (8.4-10.2); CARBON DIOXIDE 32 mmol/L (22-30); CHLORIDE 99 mmol/L (98-107); CHOLESTEROL 130.79 mg/dL (0-200); GLUCOSE 94 mg/dL (75-110); TOTAL PROTEIN 7.4 g/dL (6.3-8.2); TRIGLYCERIDES 99 mg/dL (<150)
[2019-12-15 08:59] LABS: DIRECT LDL 73 mg/dL (<100)
== END ==
LOC: OD 07:07
PROVIDERS: ATTEND Family Medicine Geriatric Medicine
DX: R53.81 Other malaise (principal); R41.0 Disorientation, unspecified; J40 Bronchitis, not specified as acute or chronic; Z79.899 Other long term (current) drug therapy
CPT/HCPCS: 36415; 80053; 80061; 83735; 85025

== ENCOUNTER → 2020-03-15 | Outpatient (CLI) | payer MEDICARE, BC ==
[2020-03-15 11:02] LABS: ABSOLUTE BASOPHILS # (AUTO) 0.1 10^3/uL (0.0-0.2); ABSOLUTE EOSINOPHILS # (AUTO) 0.1 10^3/uL (0.0-0.6); ABSOLUTE LYMPHOCYTES (AUTO) 3.2 10^3/uL (0.5-4.7); ABSOLUTE MONOCYTES (AUTO) 0.8 10^3/uL (0.1-1.4); ABSOLUTE NEUT (AUTO) 5.1 10^3/uL (1.7-8.2); BASOPHILS % (AUTO) 0.8 % (0-2); EOSINOPHILS % (AUTO) 1.5 % (0-6); HEMATOCRIT 41.5 % (37.9-51.0); HEMOGLOBIN 13.9 g/dL (13.5-17.0); LYMPHOCYTES % (AUTO) 34.3 % (13-45); MEAN CORPUSCULAR HGB CONC 33.4 g/dL (32.0-36.0); MEAN CORPUSCULAR VOLUME 99 fl (80-97); MONOCYTES % (AUTO) 8.9 % (3-13); PLATELET COUNT 289 10^3/uL (150-450); RED CELL DISTRIBUTION WIDTH 13.4 % (11.5-14.0); SEGMENTED NEUTROPHILS % (AUTO) 54.5 % (42-78); TOTAL CELLS COUNTED % (AUTO) 100 %; WHITE BLOOD COUNT 9.4 10^3/uL (4.0-10.5)
[2020-03-15 12:37] LABS: FOLATE 7.18 ng/mL (>2.76)
== END ==
LOC: OD 09:33
PROVIDERS: ATTEND Family Medicine Geriatric Medicine
DX: E83.42 Hypomagnesemia (principal); R71.8 Other abnormality of red blood cells; Z79.899 Other long term (current) drug therapy
CPT/HCPCS: 36415; 82607; 82746; 83735; 85025

== ENCOUNTER → 2020-03-26 | Outpatient (CLI) | payer MEDICARE, BC | LOC: OD 09:31 | PROVIDERS: ATTEND Family Medicine Geriatric Medicine | DX: R79.0 Abnormal level of blood mineral (principal) | CPT/HCPCS: 36415; 83735 ==

== ENCOUNTER → 2020-07-10 | Outpatient (CLI) | payer MEDICARE, BC ==
[2020-07-10 10:59] LABS: ANION GAP 8 (5-19); BLOOD UREA NITROGEN 16 mg/dL (7-20); CALCIUM 9.5 mg/dL (8.4-10.2); CARBON DIOXIDE 31 mmol/L (22-30); CHLORIDE 101 mmol/L (98-107); GLUCOSE 83 mg/dL (75-110); POTASSIUM 3.9 mmol/L (3.6-5.0)
== END ==
LOC: OD 09:04
PROVIDERS: ATTEND Family Medicine Geriatric Medicine
DX: I10 Essential (primary) hypertension (principal); E83.41 Hypermagnesemia; Z79.899 Other long term (current) drug therapy
CPT/HCPCS: 36415; 80048; 83735

== ENCOUNTER 2020-08-23 09:16 | Emergency (ER) | payer MEDICARE, BC ==
[2020-08-23 10:29] LABS: ABSOLUTE BASOPHILS # (AUTO) 0.1 10^3/uL (0.0-0.2); ABSOLUTE EOSINOPHILS # (AUTO) 0.3 10^3/uL (0.0-0.6); ABSOLUTE LYMPHOCYTES (AUTO) 2.3 10^3/uL (0.5-4.7); ABSOLUTE MONOCYTES (AUTO) 0.7 10^3/uL (0.1-1.4); BASOPHILS % (AUTO) 0.8 % (0-2); EOSINOPHILS % (AUTO) 3.3 % (0-6); HEMATOCRIT 36.1 % (37.9-51.0); HEMOGLOBIN 12.5 g/dL (13.5-17.0); LYMPHOCYTES % (AUTO) 27.1 % (13-45); MEAN CORPUSCULAR HGB CONC 34.7 g/dL (32.0-36.0); MEAN CORPUSCULAR VOLUME 95 fl (80-97); MONOCYTES % (AUTO) 8.4 % (3-13); PLATELET COUNT 241 10^3/uL (150-450); RED CELL DISTRIBUTION WIDTH 13.2 % (11.5-14.0); SEGMENTED NEUTROPHILS % (AUTO) 60.4 % (42-78); TOTAL CELLS COUNTED % (AUTO) 100 %; WHITE BLOOD COUNT 8.3 10^3/uL (4.0-10.5)
[2020-08-23 10:53] LABS: ALBUMIN 3.9 g/dL (3.5-5.0); ALKALINE PHOSPHATASE 107 U/L (38-126); ANION GAP 6 (5-19); ASPARTATE AMINO TRANSFERASE 28 U/L (17-59); BILIRUBIN,DIRECT 0.1 mg/dL (0.0-0.4); BILIRUBIN,TOTAL 0.6 mg/dL (0.2-1.3); BLOOD UREA NITROGEN 28 mg/dL (7-20); CARBON DIOXIDE 37 mmol/L (22-30); CHLORIDE 96 mmol/L (98-107); GLUCOSE 106 mg/dL (75-110); POTASSIUM 3.6 mmol/L (3.6-5.0)
[2020-08-23 11:04] LABS: CREATINE KINASE MB 1.42 ng/mL (<4.55); NT PRO BNP 103 pg/mL (<125)
[2020-08-23 11:10] LABS: TROPONIN I < 0.012 ng/mL
[2020-08-23] MEDS ORDERED: FUROSEMIDE INJ/PF 20 MG/2 ML SDV IV ONE (13:11)
[2020-08-23] MEDS ORDERED: VANCOMYCIN HCL INJ 1000 MG VIAL IV ONE (13:12)
--- NOTE | 2020-08-23 13:20 | ER Document Report ---
ED General - General Chief Complaint: Swelling of Lower Extremity Stated Complaint: LEG SWELLING Time Seen by Provider: 08/23/20 12:04 Primary Care Provider: CHUCKY RAYGOZA MD [Primary Care Provider] - Follow up as needed TRAVEL OUTSIDE OF THE [place] IN LAST 30 DAYS: No - HPI Notes: Chief complaint: Swelling of lower legs and blistering of skin History of present illness: 74-year-old male with history of obstructive sleep apnea and dementia seen today for progressively worsening bilateral lower extremity edema of insidious onset over the last month. Within the last week or so he has developed blisters of lower legs with a weeping dermatitis. No fever, chills, nausea or vomiting. Patient denies significant pain at this time. says he used nocturnal CPAP in the past but because of the dementia he is now refusing to wear the mask. He is still taking Lasix 20 mg daily. Most of the history is obtained from the as the patient is pleasantly demented and confabulating. indicates this this is his typical baseline. - Related Data Allergies/Adverse Reactions: lisinopril Adverse Reaction (Verified 07/22/17 14:08) Unknown reaction Home Medications: Lasix, Bumex, Donepezil, Losartan, Ranexa Past Medical History - General Information source: Patient, Relative, [facility] Records - Social History Smoking Status: Never Smoker Frequency of alcohol use: None Drug Abuse: None Family History: Hypertension - Past Medical History Cardiac Medical History: Reports: Hx Hypercholesterolemia - meds x 4 years, Hx Hypertension - meds x 4 years Denies: Hx Atrial Fibrillation, Hx Congestive Heart Failure, Hx Coronary Artery Disease, Hx Heart Attack, Hx Peripheral Vascular Disease, Hx Heart Murmur Pulmonary Medical History: Reports: Hx Sleep Apnea - Noncompliant with CPAP Neurological Medical History: Renal/ Medical History: Denies: Hx Peritoneal Dialysis GI Medical History: Denies: Hx Crohn's Disease, Hx Gastroesophageal Reflux Disease, Hx Hiatal Hernia, Hx Irritable Bowel, Hx Liver Failure, Hx Pancreatitis, Hx Ulcer Musculoskeletal Medical History: Reports Hx Arthritis, Denies Hx Fibromyalgia, Denies Hx Muscular Dystrophy Psychiatric Medical History: Denies: Hx Bipolar Disorder, Hx Depression, Hx Post Traumatic Stress Disorder, Hx Schizophrenia Traumatic Medical History: Denies: Hx Fractures Infectious Medical History: Past Surgical History: Reports: Hx Abdominal Surgery - hernia; colectomy, Hx Bowel Surgery - 07/04/13, 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 Denies: Hx Appendectomy, Hx Cholecystectomy, Hx Colostomy, Hx Coronary Artery Bypass Graft, Hx Gastric Bypass Surgery, Hx Pacemaker, Hx Tonsillectomy - Immunizations Hx Diphtheria, Pertussis, Tetanus Vaccination: Yes Hx Pneumococcal Vaccination: 07/07/13 Review of Systems - Review of Systems -: Yes ROS unobtainable due to patient's medical condition Physical Exam - Vital signs Vitals: Temp Pulse Resp BP Pulse Ox 98.4 F 83 18 168/73 H 97 08/23/20 09:36 08/23/20 09:36 08/23/20 09:36 08/23/20 09:36 08/23/20 09:36 - Notes Notes: GENERAL: Mildly obese male approximately stated age appearing in no acute distress. SKIN: Patient has weeping bullae both lower legs with clear fluid. HEAD: Normocephalic atraumatic. EYES: PERRLA. EOMI. Conjunctivae and sclerae clear. EARS: CANALS AND TMS CLEAR. NOSE: CLEAR. MOUTH: Moist mucosa. Good dentition. No stridor or edema. No drooling. NECK: Supple. No masses or thyromegaly. No adenopathy. Carotids 2+ without bruits. No JVD. BACK: Symmetrical without tenderness. CHEST: Respirations unlabored. Breath sounds clear and symmetrical. HEART: Regular rhythm. No murmur gallop or rub. ABDOMEN: Obese. Soft nontender without masses, organomegaly or rebound. Bowel sounds normally active. No bruits. GENITALIA: Deferred. EXTREMITIES: 3+ bilateral pretibial edema. Knee replacement scars bilaterally. No calf tenderness. Cap refill less than 1.5 seconds. Dorsalis pedis and posterior tibial pulses 3+ and symmetrical. NEUROLOGICAL: Oriented to person only. Moderate confabulation. Moves all 4 extremities symmetrically. This is his neurologic baseline per . PSYCHIATRIC: Oriented to person. Moderate confabulation.. Course - Re-evaluation Re-evalutation: 08/23/20 18:54 We gave patient a dose of IV Lasix here. He had a good diuresis. His BNP is not significantly elevated. His creatinine is 1.5. His protein and albumin are normal. He did not have any proteinuria. I got ultrasound of both lower extremities and he has no evidence of DVT. I think his edema is primarily on the basis of obstructive sleep apnea syndrome and noncompliance with his CPAP. Gave him 1 dose of vancomycin IV here. We have dressed the wounds on his lower legs. We discussed management options with . She already has a CPAP unit at night to restart him on this. I will give him a short course of treatment with Zaroxolyn to promote diuresis. I going to start him on some oral antibiotics for cellulitis in his legs. We discussed outpatient treatment versus admission. Because of high prevalence of Covid in the hospital at this time she prefers to take him home and I would be in agreement with this. Patient is going to follow-up in the office with Dr. Raygoza within the next 3 to 5 days. has been advised that she may return to him here immediately for new or worsening problems. Findings, clinical impression and plan of treatment have been discussed with patient/family. Understanding of current findings and recommendations has been acknowledged by them and there is agreement regarding disposition and follow-up. - Vital Signs Vital signs: Temp Pulse Resp BP Pulse Ox 98.4 F 83 18 168/73 H 97 08/23/20 09:36 08/23/20 09:36 08/23/20 09:36 08/23/20 09:36 08/23/20 09:36 - Laboratory Results Result Diagrams: 08/23/20 10:12 08/23/20 10:12 Laboratory Results Interpreted: 08/23/20 08/23/20 10:12 10:12 RBC 3.80 L Hgb 12.5 L Hct 36.1 L Chloride 96 L Carbon Dioxide 37 H BUN 28 H Creatinine 1.49 H Est GFR ( Amer) 56 L Est GFR (MDRD) Non-Af 46 L Critical Laboratory Results Reviewed: Yes Attending or Supervising Physician who Reviewed Labs: SUNDAY PARSONS - Radiology Results Radiology Results Interpreted: 08/23/20 19:01 Venous Doppler Study 08/23/20 13:09 IMPRESSION: 1. No evidence of DVT or SVT in either lower extremity. 2. Bilateral subcutaneous edema. Critical Radiology Results Reviewed: Yes Attending or Supervising Physician who Reviewed Radiology: SUNDAY PARSONS Discharge - Discharge Clinical Impression: Bilateral lower extremity edema, Obstructive sleep apnea syndrome, Alzheimer's dementia Cellulitis of lower extremity Qualifiers: Laterality: unspecified laterality Qualified Code(s): L03.119 - Cellulitis of unspecified part of limb Condition: Stable Disposition: HOME, SELF-CARE Additional Instructions: Return here as needed for new or worsening symptoms: Pain that is worsening or unimproved Uncontrolled vomiting High fever or shaking chills Overall worsening Elevate legs. Clean wounds on legs with mild soap and water daily. Dry the area and apply Neosporin ointment and then wrapped with nonstick gauze dressing. Take prescribed medication as directed Restart use of the CPAP at night. See your doctor for follow-up within the next 3 to 5 days. Prescriptions: Sulfamethoxazole/Trimethoprim [Septra-Ds 800-160 mg Tablet] 1 tab PO BID 10 Days #20 tablet Metolazone [Zaroxolyn 2.5 Mg Tablet] 2.5 mg PO QAM 7 Days #7 tablet Referrals: CHUCKY RAYGOZA MD [Primary Care Provider] - Follow up as needed
[2020-08-23] MEDS ORDERED: LORAZEPAM INJ 2 MG/1 ML VIAL IV ONE (15:36)
--- NOTE | 2020-08-23 16:44 | RADIOLOGY REPORT (SQ) ---
EXAM DESCRIPTION: VENOUS UNILATERAL LOWER IMAGES COMPLETED DATE/TIME: 08/23/2020 4:30 pm REASON FOR STUDY: need Bilateral to r/o DVT/ pain* swelling COMPARISON: None. TECHNIQUE: Dynamic and static hall scale and color images acquired of both lower extremity venous sy stems. Selected spectral images acquired with additional compression and augmentation maneuvers. Imag es stored on PACS. Dynamic and static hall scale and color images acquired of the right and left leg venous system. Lisa cted spectral images acquired with additional compression and augmentation maneuvers. The contralater al common femoral vein and saphenofemoral junction were also imaged. Images stored on PACS. LIMITATIONS: None. FINDINGS: RIGHT LEG COMMON FEMORAL AND FEMORAL: Normal phasicity, compression and augmentation. No visualized echogenic m aterial on hall scale. No defects on color images. POPLITEAL: Normal compression and augmentation. No visualized echogenic material on hall scale. No de fects on color images. CALF VESSELS: Normal compression and augmentation. No visualized echogenic material on hall scale. No defects on color image. GSV AND SSV: Normal compression. No visualized echogenic material on hall scale. No defects on color images. ANY DEEP VENOUS INSUFFICIENCY: Not evaluated. ANY EVIDENCE OF POPLITEAL CYST: No. OTHER: Subcutaneous edema. LEFT LEG COMMON FEMORAL AND FEMORAL: Normal phasicity, compression and augmentation. No visualized echogenic m aterial on hall scale. No defects on color images. POPLITEAL: Normal compression and augmentation. No visualized echogenic material on hall scale. No de fects on color images. CALF VESSELS: Normal compression and augmentation. No visualized echogenic material on hall scale. No defects on color images. GSV AND SSV: Normal compression. No visualized echogenic material on hall scale. No defects on color images. ANY DEEP VENOUS INSUFFICIENCY: Not evaluated. ANY EVIDENCE POPLITEAL CYST: No. OTHER: Subcutaneous edema. IMPRESSION: 1. No evidence of DVT or SVT in either lower extremity. 2. Bilateral subcutaneous edema. TECHNICAL DOCUMENTATION: JOB ID: [id number] 2010 [employer]- All Rights Reserved Reading location - IP/workstation name: [email or web address]
[2020-08-23 17:12] LABS: APPEARANCE,URINE CLEAR; BILIRUBIN,URINE NEGATIVE (NEGATIVE); COLOR,URINE YELLOW; GLUCOSE, URINE NEGATIVE (NEGATIVE); KETONES,URINE NEGATIVE (NEGATIVE); LEUKOCYTE ESTERASE,URINE NEGATIVE (NEGATIVE); NITRITE,URINE NEGATIVE (NEGATIVE); PROTEIN,URINE NEGATIVE (NEGATIVE); URINE SPECIFIC GRAVITY 1.009; UROBILINOGEN,URINE NEGATIVE mg/dL (<2.0)
--- NOTE | 2020-08-23 19:42 | XCELERA REPORT ---
[address] [address] Transthoracic Echocardiogram Report Name: ROSALIA NIX Age: 74 yrs Gender: Male : 1945 Patient Status: Emergency Patient Location: ER Study Date: 08/23/2020 03:09 PM Height: 75 in Weight: 315 lb BSA: 2.7 m2 Procedure: A complete two-dimensional transthoracic echocardiogram was performed (2D, M-mode, spectral and color flow Doppler). The study was technically difficult with many images being suboptimal in quality. Reason For Study: AUGIE, peripheral edema Ordering Physician: SUNDAY PARSONS Performed By: Maida Nguyen Interpretation Summary The left ventricular ejection fraction is normal. There is moderate concentric left ventricular hypertrophy. The left ventricle is grossly normal size. Doppler measurements suggest reversible restrictive left ventricular relaxation, which is associated with grade III/IV or moderate diastolic dysfunction Regional wall motion abnormalities cannot be excluded due to limited visualization. The right ventricle is grossly normal size. The right atrium is normal in size The left atrial size is normal. There is a trace to mild amount of mitral regurgitation There is no mitral valve stenosis. There is no aortic valve stenosis No aortic regurgitation is present. There is a trace amount of tricuspid regurgitation Tricuspid regurgitation jet envelope not well defined to measure RV systolic pressure accurately. Minimal pericardial effusion. MMode/2D Measurements & Calculations RVDd: 3.5 cm LVIDd: 3.3 cm FS: 35.1 % Ao root diam: 3.6 cm IVSd: 1.5 cm LVIDs: 2.1 cm EDV(Teich): 44.1 ml Ao root area: 10.0 cm2 LVPWd: 1.5 cm ESV(Teich): 15.1 ml LA dimension: 4.2 cm EF(Teich): 65.7 % Doppler Measurements & Calculations MV E max todd: MV P1/2t max todd: Ao V2 max: LV V1 max P.2 cm/sec 139.7 cm/sec 307.4 cm/sec 31.6 mmHg MV P1/2t: 47.8 msec Ao max PG: LV V1 max: MVA(P1/2t): 4.6 cm2 38.2 mmHg 281.0 cm/sec MV dec slope: 856.7 cm/sec2 PA V2 max: TR max todd: MV P1/2t-pr_phl: 128.3 cm/sec 282.3 cm/sec 47.8 msec PA max P.6 mmHgTR max P.9 mmHg Left Ventricle The left ventricle is grossly normal size. There is moderate concentric left ventricular hypertrophy. The left ventricular ejection fraction is normal. Doppler measurements suggest reversible restrictive left ventricular relaxation, which is associated with grade III/IV or moderate diastolic dysfunction. Regional wall motion abnormalities cannot be excluded due to limited visualization. Right Ventricle The right ventricle is grossly normal size. There is normal right ventricular wall thickness. The right ventricular systolic function is normal. Atria The right atrium is normal in size. The left atrial size is normal. Interarterial septum not well visualized and not well dopplered. Cannot comment on ASD/PFO presence. Mitral Valve The mitral valve leaflets are sclerotic, but show no functional abnormalities. There is no mitral valve stenosis. There is a trace to mild amount of mitral regurgitation. Aortic Valve The aortic valve is not well visualized secondary to technical limitations. There is no aortic valve stenosis. No aortic regurgitation is present. Tricuspid Valve The tricuspid valve is not well visualized secondary to technical limitations. There is no tricuspid stenosis. There is a trace amount of tricuspid regurgitation. Tricuspid regurgitation jet envelope not well defined to measure RV systolic pressure accurately. Pulmonic Valve The pulmonic valve is not well visualized. Great Vessels The aortic root is not well visualized. The inferior vena cava was not well visualized. Effusions Minimal pericardial effusion. : SUNDAY PARSONS Shyamal
[2020-08-23 19:50] VITALS: BP 147/94
== END 2020-08-23 19:51 | disposition home or self-care (01) ==
LOC: ER 09:16
DX: R60.9 Edema, unspecified (principal); G47.33 Obstructive sleep apnea (adult) (pediatric); G30.9 Alzheimer's disease, unspecified; F02.80 Dementia in other diseases classified elsewhere, unspecified severity, without behavioral disturbance, psychotic disturbance, mood disturbance, and anxiety; L03.119 Cellulitis of unspecified part of limb; E78.00 Pure hypercholesterolemia, unspecified; I10 Essential (primary) hypertension; Z96.653 Presence of artificial knee joint, bilateral
CPT/HCPCS: 99285; 96374; 96375; 36415; 87070; 87205; 82553; 85025; 87077; 80053; 81001; 84484; 87186; 83880; 93306; 93971; J1940; J2060; J3370